=== PATIENT | male | born 1965 | race Hispanic/Latino ===

== ENCOUNTER 2019-01-11 13:59 | Outpatient (CLI) | payer MEDICARE ==
--- NOTE | 2019-01-11 15:35 | ULT ---
RENAL SONOGRAM: HISTORY: Chronic renal disease. FINDINGS: The right kidney is 9.9 cm and the left kidney is 9.8 cm. Each has a normal appearance without evide nce of mass, stone, or hydronephrosis. Urinary bladder is incompletely distended. Pleural fluid is seen bilaterally. IMPRESSION: 1. Normal sonographic appearance of the kidneys. No evidence of obstruction. 2. Bilateral pleural fluid. POS: [facility]
== END 2019-01-11 14:00 | disposition home or self-care (01) ==
LOC: BICULT 13:59
PROVIDERS: ATTEND Internal Medicine Nephrology
DX: N18.4 Chronic kidney disease, stage 4 (severe) (principal); J94.8 Other specified pleural conditions
CPT/HCPCS: 76770

== ENCOUNTER 2019-05-09 09:27 | Outpatient (CLI) | payer MEDICARE, OTHER ==
--- NOTE | 2019-05-09 11:15 | ULT ---
ULTRASOUND VESSEL MAPPING DIALYSIS ACCESS: HISTORY: Dialysis. End-stage renal disease. COMPARISON: Ultrasound vessel mapping of 06/09/2016. FINDINGS: Real-time, pastrana scale, color Doppler, and spectral analysis of bilateral upper extremity venous and a rterial systems performed. RIGHT SIDE: Brachial Artery: 4.6 mm Radial Artery: 1.6 mm Ulnar Artery: 1.4 mm CEPHALIC: Proximal humerus 2.9 mm Mid humerus 1.9 mm Distal 2.7 mm Elbow 4.3 mm Proximal forearm 2.3 mm Mid 1.9 mm Distal 1.6 mm BASILIC: Proximal humerus 4.7 mm Mid humerus 3.2 mm Distal 2.8 mm Elbow 1.3 mm Proximal forearm 0.7 mm Mid 0.7 mm Distal 0.9 mm LEFT SIDE: Brachial Artery: 4.0 mm Radial Artery: 2.0 mm Ulnar Artery: 1.6 mm CEPHALIC: Proximal humerus 2.8 mm Mid humerus 2.6 mm Distal 3.2 mm Elbow 4.1 mm Proximal forearm 2.1 mm Mid 1.9 mm Distal 2.3 mm BASILIC: Proximal humerus 5.1 mm Mid humerus 2.5 mm Distal 2.7 mm Elbow 1.0 mm Proximal forearm 1.3 mm Mid 1.0 mm Distal 1.4 mm The internal jugular veins and subclavian veins are patent. IMPRESSION: Vascular size as above. POS: [facility]
== END 2019-05-09 09:28 | disposition home or self-care (01) ==
LOC: BICULT 09:27
PROVIDERS: ATTEND Internal Medicine Nephrology
DX: N18.5 Chronic kidney disease, stage 5 (principal); R60.9 Edema, unspecified
CPT/HCPCS: 93970; G0365

== ENCOUNTER 2019-11-08 11:08 | Inpatient (IN) | payer MEDICARE, SELFPAY ==
[2019-11-08 11:51] LABS: #Eosinphils 0.1 thou/uL (0.0-0.7); #Lymphocytes 0.6 thou/uL (1.20-3.40); #Monocytes 0.4 thou/uL (0.11-0.59); #Neutrophils 8.8 thou/uL (1.40-6.50); %Eosinophils 0.9 % (0.0-10.0); %Lymphocytes 5.8 % (21.0-51.0); %Monocytes 4.2 % (0.0-10.0); %Neutrophils 89.1 % (42.0-75.0); Hemoglobin 8.4 g/dL (14.0-18.0); Mean Corpuscular HGB CONC 35.2 g/dL (32.0-36.0); Mean Corpuscular Hemoglobin 30.9 pg (27.0-31.0); Mean Corpuscular Volume 87.7 fL (78.0-98.0); Mean Platelet Volume 6.2 fL (7.4-10.4); Platelet Count 240 thou/uL (130-400); RBC Distribution Width 12.3 % (11.5-14.5); Red Blood Cell (RBC) Count 2.72 mill/uL (4.70-6.10); White Blood Cell (WBC) Count 9.8 thou/uL (4.8-10.8)
--- NOTE | 2019-11-08 11:56 | RAD ---
XR Chest 1 View Portable HISTORY: End-stage renal disease, fluid overload COMPARISON: None FINDINGS: The heart is enlarged. There is pulmonary vascular congestion with bilateral pleural effusi ons, right larger than left. No pneumothoraces are seen.
[2019-11-08 12:11] LABS: ALT (SGPT) 8 U/L (8-55); AST (SGOT) 12 U/L (5-34); Albumin 3.3 g/dL (3.5-5.0); Alkaline Phosphatase 70 U/L (40-110); Anion Gap 21 mmol/L (10-20); BUN (Urea Nitrogen) 120 mg/dL (8.4-25.7); Bilirubin, Total 0.5 mg/dL (0.2-1.2); Calc. Creatinine Clearance 0 mL/min (70-130); Calcium 6.2 mg/dL (7.8-10.44); Carbon Dioxide 19 mmol/L (22-29); Chloride 101 mmol/L (98-107); Estimated GFR-MDRD 5; Globulin 3.1 g/dL (2.4-3.5); Glucose 119 mg/dL (70-105); Potassium 3.8 mmol/L (3.5-5.1); Protein, Total 6.4 g/dL (6.0-8.3); Sodium 137 mmol/L (136-145)
[2019-11-08] MEDS ORDERED: Furosemide 40 MG/4 ML VIAL ONE (12:19)
[2019-11-08] MEDS ORDERED: EPOETIN ALFA-EPBX (ESRD) 10,000 UNIT/ML VIAL SC SCH (12:45)
[2019-11-08] MEDS ORDERED: Nitroglycerin 2% Ointment 1 INCH/1 GM Packet ONE (14:38)
[2019-11-08] MEDS ORDERED: Calcium Gluc 4.6 MEQ/10 ML (100 MG/ML) SLOW IVP SCH (15:00)
--- NOTE | 2019-11-08 15:56 | CON ---
DATE OF CONSULTATION: REASON FOR CONSULTATION: CKD stage 5. HISTORY OF PRESENT ILLNESS: This is a very pleasant 54-year-old gentleman presented to the hospital with worsening renal failure and uremia. The patient was noted to have elevated creatinine. The patient denies any chest pain or any new onset of dyspnea. PAST MEDICAL HISTORY: For hypertension, history of anemia, history of CKD stage 5, history of diabetes mellitus, has history of foot surgery. SOCIAL HISTORY: No alcohol or drug use. FAMILY HISTORY: Negative for ESRD. ALLERGIES: REVIEWED. HOME MEDICATIONS: List reviewed. HOSPITAL MEDICATIONS: List reviewed. REVIEW OF SYSTEMS: A 15-point review of system was performed, negative except for positives noted above. GENERAL: HEAD: NECK: No swelling or lumps. NOSE: No epistaxis or discharge. EYES: No diplopia or pain. RESPIRATORY: CARDIOVASCULAR: GASTROINTESTINAL: /HEAD GOLF PROFESSIONAL: MUSCULOSKELETAL: No joint pain. NEUROPSYCHIATIC SYSTEMS: No suicidal ideation. No ideation. SKIN: Denies any rash or ulcer. CONSTITUTIONAL: No fever or chills. PHYSICAL EXAMINATION: CONSTITUTIONAL: The patient is awake and alert. VITAL SIGNS: Reviewed. GENERAL APPEARANCE AND MENTAL STATUS: Fair. HEAD/NECK: Normocephalic. Atraumatic. EYES: EOMI. No deformity. EARS: Clear. No ulcers. NOSE: Intact. No lesions. MOUTH: Clear. No discharge. THROAT: Clear. No exudate. LUNGS: Clear. No crackles. CARDIAC: S1, S2. No rub. ABDOMEN: Benign. Bowel sounds positive. GENITALIA/RECTUM: Ortega absent. BACK/EXTREMITIES: Edema 0+. NEUROLOGICAL: Alert and motor intact. SKIN: LYMPHATICS: LABORATORY DATA: Labs reviewed. ASSESSMENT AND PLAN: Stage 5 chronic kidney disease. We will discuss risk versus benefits of dialysis. Hypertension, stable. Anemia, we will start Epogen and transfuse as needed. Medications based on GFR appropriate. Job ID: [id number]
[2019-11-08] MEDS ORDERED: Furosemide 100 MG/10 ML VIAL SLOW IVP SCH (18:00)
[2019-11-08] MEDS ORDERED: Acetaminophen 500 MG TAB PO PRN (18:40)
[2019-11-08] MEDS ORDERED: Dextrose 5% in Water 1,000 ML IV PRN (18:40)
[2019-11-08] MEDS ORDERED: Dextrose 50% Abboject 50 ML SYRINGE SLOW IVP PRN (18:40)
[2019-11-08] MEDS ORDERED: hydrALAZINE 20 MG/ML VIAL SLOW IVP PRN (18:40)
[2019-11-08] MEDS ORDERED: Ondansetron PF 4 MG/2 ML Vial IVP PRN (18:40)
[2019-11-08] MEDS ORDERED: Ondansetron ODT 4 MG TAB PO PRN (18:40)
[2019-11-08] MEDS: HumaLOG 300 UNITS/3 ML VIAL SC PRN (20:48)
[2019-11-08] MEDS: Famotidine 20 MG TAB PO SCH (20:49)
--- NOTE | 2019-11-08 21:02 | HP ---
PRIMARY CARE PROVIDER: Anisha Hamilton. PRIMARY OVERHAULER BUS TRUCK: Quentin Patricia MD CHIEF COMPLAINT: Swelling. HISTORY OF PRESENT ILLNESS: This is a 54-year-old male with a significant history of end-stage renal disease, awaiting renal transplant and previously refusing hemodialysis, presenting to his primary geriatric social work professor office for followup. The patient was noted with general anasarca and referred to the emergency room for evaluation and IV Lasix. The patient had noticed approximately 3-week history of persistent swelling of his lower extremities, abdomen and face. The patient states he is in the process of pursuing transplant through the Facility in [place], [place]. The patient denied any orthopnea, fever, chills, trauma or injury. The patient denied any travel history or family members with similar symptoms. The patient does admit he continues to urinate without change to the volume. In the emergency room, the patient was noted on chest imaging without pulmonary edema as well as a large bilateral pleural effusions. The patient received IV Lasix 80 mg x1 dose in addition to calcium gluconate, transdermal nitroglycerin, and Epogen. PAST MEDICAL HISTORY: 1. End-stage renal disease, not on dialysis. 2. Diabetes mellitus type 2, diet managed. 3. Glaucoma. PAST SURGICAL HISTORY: Status post transmetatarsal amputation of the right foot. CURRENT MEDICATIONS: 1. Metolazone 5 mg p.o. daily. 2. Lasix 80 mg p.o. b.i.d. ALLERGIES: NO KNOWN DRUG ALLERGIES. FAMILY HISTORY: Mother and father with hypertension. Father with diabetes mellitus and myocardial infarction. SOCIAL HISTORY: Resides in [place], [place] with his mother. Quit alcohol use 10 years prior to this evaluation. Quit tobacco use 10 years prior to this evaluation. No illicit drug use. REVIEW OF SYSTEMS: CONSTITUTIONAL: Negative for weight loss or gain, ability to conduct usual activities. SKIN: Negative for rash, itching. EYES: Negative for double vision, pain. ENT/MOUTH: Negative for nose bleeding, neck stiffness, pain, tenderness. CARDIOVASCULAR: Negative for palpitations, dyspnea on exertion, orthopnea. RESPIRATORY: Negative for shortness of breath, wheezing, cough, hemoptysis, fever or night sweats. GASTROINTESTINAL: Negative for poor appetite, abdominal pain, heartburn, nausea, vomiting, constipation, or diarrhea. GENITOURINARY: Negative for urgency, frequency, dysuria, nocturia. MUSCULOSKELETAL: Negative for pain, swelling. NEUROLOGIC/PSYCHIATRIC: Negative for anxiety, depression. ALLERGY/IMMUNOLOGIC: Negative for skin rash, bleeding tendency. Otherwise negative except as stated per HPI. PHYSICAL EXAMINATION: VITAL SIGNS: On admission, blood pressure 199/104, pulse 93, respiratory rate 16, temperature 99.2 degrees Fahrenheit, O2 saturation 98% on room air. GENERAL APPEARANCE: This is a 54-year-old male, alert and oriented x3, pleasant, responsive, in no acute distress. HEENT: Pupils are equal, round, reactive to light and accommodation. Extraocular muscles are intact. No scleral icterus. No conjunctival injection. Nares patent. OP is clear. Periorbital edema noted. NECK: Supple. No cervical adenopathy. No thyromegaly. No carotid bruits. JVD noted bilaterally. CHEST: Absent breath sounds from the mid hemithorax to the bases bilaterally. Scattered crackles in the mid lung zones bilaterally. CARDIOVASCULAR: S1, S2 without noted murmur, rub, or gallop. ABDOMEN: Distended and firm with positive bowel sounds in all 4 quadrants. Positive fluid wave. EXTREMITIES: Warm and dry with fair turgor. Postsurgical changes noted with transmetatarsal amputation of the right foot consistent with prior surgical history. Pitting edema to the proximal thighs. Pulses are palpable distally at the dorsalis pedis, posterior tibial, and popliteal arteries bilaterally. Capillary refill less than 2 seconds. NEUROLOGIC: Cranial nerves 2 through 12 are grossly intact. No focal or lateralizing signs appreciated. PERTINENT LAB AND X-RAY FINDINGS: Sodium 137, potassium 3.8, chloride 101, CO2 of 19, BUN 120, creatinine 10.07, estimated GFR 5, glucose 119, calcium 6.2, albumin 3.3. BNP 3027. LFTs within normal limits. CBC showed a white blood cell count of 9.8, hemoglobin 8.4, hematocrit 24, platelet count 240 with 89% neutrophils. Portable chest x-ray dated 11/08/2019 showed pulmonary vascular prominence with pulmonary edema and bilateral pleural effusions, right greater than left. ASSESSMENT AND PLAN: 1. End-stage renal disease with volume overload. The patient will be admitted to the medical floor. We will continue Lasix 80 mg IV b.i.d. Monitor urine output and daily weights. The patient considering hemodialysis options as a temporary option pending renal transplant. 2. Pulmonary edema. Secondary to #1. Check 2D transthoracic echocardiogram for accurate ejection fraction. Continue Lasix as outlined previously. 3. Normocytic anemia secondary to chronic kidney disease. Status post Epogen in the emergency room. Serial H and H monitoring. No current evidence of acute blood loss. 4. Hypertensive urgency. Suspect secondary to volume overload. Improved after transdermal nitroglycerin. Continue hydralazine 10 mg IV q.4 hours p.r.n. systolic greater than or equal to 170. 5. Prophylaxis. SCDs while in bed. Pepcid 20 mg p.o. b.i.d.. CODE STATUS: Full. Surrogate medical decision maker is the patient's mother. Job ID: [id number]
[2019-11-09] MEDS: Cepastat Lozenges 1 LOZ PO PRN ×2 (05:32→12:18)
[2019-11-09] MEDS: Furosemide 100 MG/10 ML VIAL SLOW IVP SCH ×2 (05:33→14:49)
[2019-11-09 06:20] LABS: Hemoglobin A1c 5.7 % (4.0-6.0)
[2019-11-09 06:33] LABS: Phosphorus 8.5 mg/dL (2.3-4.7)
[2019-11-09 06:34] LABS: Mean Corpuscular HGB CONC 34.9 g/dL (32.0-36.0); Mean Corpuscular Hemoglobin 30.9 pg (27.0-31.0); Mean Corpuscular Volume 88.6 fL (78.0-98.0); Mean Platelet Volume 6.8 fL (7.4-10.4); Platelet Count 247 thou/uL (130-400); RBC Distribution Width 12.5 % (11.5-14.5); Red Blood Cell (RBC) Count 2.26 mill/uL (4.70-6.10); White Blood Cell (WBC) Count 6.5 thou/uL (4.8-10.8)
[2019-11-09 06:39] LABS: ALT (SGPT) 7 U/L (8-55); AST (SGOT) 9 U/L (5-34); Albumin 2.7 g/dL (3.5-5.0); Alkaline Phosphatase 57 U/L (40-110); Anion Gap 21 mmol/L (10-20); BUN (Urea Nitrogen) 125 mg/dL (8.4-25.7); Bilirubin, Total 0.4 mg/dL (0.2-1.2); Calc. Creatinine Clearance 9 mL/min (70-130); Calcium 6.1 mg/dL (7.8-10.44); Carbon Dioxide 16 mmol/L (22-29); Chloride 103 mmol/L (98-107); Estimated GFR-MDRD 6; Globulin 2.5 g/dL (2.4-3.5); Glucose 89 mg/dL (70-105); Magnesium 2.2 mg/dL (1.6-2.6); Potassium 3.4 mmol/L (3.5-5.1); Protein, Total 5.2 g/dL (6.0-8.3); Sodium 137 mmol/L (136-145)
[2019-11-09 06:47] LABS: Band 4 % (5-11); Eosinophils 1 % (0-10); Lymphocytes 12 % (21-51); MDiff Complete? YES; Monocytes 8 % (0-10); Neutrophil 75 % (42-75)
--- NOTE | 2019-11-09 09:35 | PRG ---
DATE OF SERVICE: 11/09/2019 SUBJECTIVE: The patient is seen and examined at the bedside. He makes good urine, but it was not measured exactly, so we do not know exact output, but he noticed significant improvement on his leg swelling. He overall feels good. He is awaiting for transplant. He is awaiting for transplant. He is on list in [place]. OBJECTIVE: VITAL SIGNS: Blood pressure is 121/79, pulse is 86, respiratory rate is 20, temperature is 98.0, and O2 saturation 93% on room air. HEENT: Head is atraumatic and normocephalic. Conjunctivae are palish. Oral mucosa is moist. NECK: Supple. LUNGS: Bilateral rales and crackles at both bases. HEART: S1 and S2 normal. No S3. No S4. ABDOMEN: Soft and nontender, somewhat swollen. EXTREMITIES: 2+ peripheral edema pitting, similar bilaterally. NEUROLOGIC: He is alert and oriented x4. There are no any motor or sensory deficits. Cranial nerves are intact. LABORATORY DATA: Labs showed a white count of 6.5, hemoglobin 7.0, hematocrit 20.0, platelet count is 247. Sodium of 137, potassium 3.4, chloride 103, CO2 of 16, creatinine 9.76, BUN 125, glucose is ranging from 130 to 234, calcium 6.1, albumin 2.7, and total protein 5.2. IMPRESSION: 1. End-stage renal disease, worsening. The patient is on IV Lasix and we are going to start a strict input and output on him. The patient was seen by continuous linter drier operator and he agrees with the current regimen. 2. Anemia. He is still fluid overloaded with significantly decreased breath sounds at both bases on physical examination, which is evidence that he has some fluid in his both lower lobes of both lungs. I am going to wait before I transfuse him, he received Epogen yesterday from Dr. Patricia. If his hemoglobin and hematocrit are low tomorrow below 7, I will transfuse him with 1 unit of packed red blood cells. 3. Diabetes mellitus. 4. Hypertensive urgency, improved. PLAN: Plan is to continue current regimen with IV Lasix. Continue Accu-Cheks before meals and at bedtime and cover with the sliding scale. We are going to start do strict input and output. Job ID: [id number]
[2019-11-09] MEDS ORDERED: Furosemide 100 MG/10 ML VIAL SLOW IVP SCH (10:00)
--- NOTE | 2019-11-09 10:02 | PRG ---
DATE OF SERVICE: 11/09/2019 SUBJECTIVE: A 54-year-old gentleman, being seen for stage 5 chronic kidney disease. The patient denies any nausea, vomiting, or chest pain. OBJECTIVE: See above. Awake, alert, in no acute distress. VITAL SIGNS: Afebrile, pulse 82, breathing 16, blood pressure 137/78. GENERAL APPEARANCE AND MENTAL STATUS: Fair. HEAD/NECK: Normocephalic. Atraumatic. EYES: EOMI. No deformity. EARS: Clear. No ulcers. NOSE: Intact. No lesions. MOUTH: Clear. No discharge. THROAT: Clear. No exudate. LUNGS: Clear. No crackles. CARDIAC: S1, S2. No rub. ABDOMEN: Benign. Bowel sounds positive. GENITALIA/RECTUM: Ortega absent. BACK/EXTREMITIES: Edema 0+. NEUROLOGICAL: Alert and motor intact. SKIN: LYMPHATICS: LABORATORY DATA: Reviewed. ASSESSMENT AND PLAN: 1. Stage 5 chronic kidney disease with uremia and congestive heart failure, offered dialysis. The patient has declined. 2. Hypertension, stable. 3. Anemia, stable. All risks versus benefits of renal replacement therapy were offered, the patient declined. Job ID: [id number]
[2019-11-09] MEDS: HumaLOG 300 UNITS/3 ML VIAL SC PRN (12:16)
[2019-11-09] MEDS: Famotidine 20 MG TAB PO SCH (20:34)
[2019-11-10] MEDS: Furosemide 100 MG/10 ML VIAL SLOW IVP SCH ×2 (05:24→14:03)
--- NOTE | 2019-11-10 08:27 | PRG ---
DATE OF SERVICE: 11/10/2019 SUBJECTIVE: A 54-year-old gentleman being seen for end-stage kidney disease. The patient denies any nausea, vomiting, or chest pain. OBJECTIVE: CONSTITUTIONAL: The patient is awake, alert. VITAL SIGNS: Afebrile, pulse breathing 16, blood pressure GENERAL APPEARANCE AND MENTAL STATUS: Fair. HEAD/NECK: Normocephalic. Atraumatic. EYES: EOMI. No deformity. EARS: Clear. No ulcers. NOSE: Intact. No lesions. MOUTH: Clear. No discharge. THROAT: Clear. No exudate. LUNGS: Clear. No crackles. CARDIAC: S1, S2. No rub. ABDOMEN: Benign. Bowel sounds positive. GENITALIA/RECTUM: Ortega absent. BACK/EXTREMITIES: Lower extremities showed edema. NEUROLOGICAL: Alert and motor intact. SKIN: LYMPHATICS: LABORATORY DATA: None today. ASSESSMENT AND PLAN: 1. Stage 6 chronic kidney disease. Recommend dialysis. The patient refused. 2. Hypertension, stable. 3. Anemia. We would recommend checking hemoglobin and consider transfusion and Epogen. Job ID: [id number]
[2019-11-10 08:32] LABS: #Basophils 0.1 thou/uL (0.0-0.2); #Eosinphils 0.2 thou/uL (0.0-0.7); #Lymphocytes 0.7 thou/uL (1.20-3.40); #Monocytes 0.6 thou/uL (0.11-0.59); #Neutrophils 7.9 thou/uL (1.40-6.50); %Basophils 0.6 % (0.0-1.0); %Eosinophils 1.8 % (0.0-10.0); %Lymphocytes 7.5 % (21.0-51.0); %Monocytes 6.1 % (0.0-10.0); Hemoglobin 7.8 g/dL (14.0-18.0); Mean Corpuscular HGB CONC 34.5 g/dL (32.0-36.0); Mean Corpuscular Hemoglobin 30.4 pg (27.0-31.0); Mean Corpuscular Volume 88.3 fL (78.0-98.0); Mean Platelet Volume 6.3 fL (7.4-10.4); Platelet Count 260 thou/uL (130-400); RBC Distribution Width 12.8 % (11.5-14.5); Red Blood Cell (RBC) Count 2.58 mill/uL (4.70-6.10); White Blood Cell (WBC) Count 9.4 thou/uL (4.8-10.8)
[2019-11-10 08:49] LABS: Anion Gap 20 mmol/L (10-20); Calc. Creatinine Clearance 9 mL/min (70-130); Calcium 6.4 mg/dL (7.8-10.44); Carbon Dioxide 20 mmol/L (22-29); Chloride 103 mmol/L (98-107); Estimated GFR-MDRD 6; Glucose 126 mg/dL (70-105); Potassium 3.8 mmol/L (3.5-5.1); Sodium 139 mmol/L (136-145)
[2019-11-10 09:01] LABS: BUN (Urea Nitrogen) 121 mg/dL (8.4-25.7)
[2019-11-10] MEDS: HumaLOG 300 UNITS/3 ML VIAL SC PRN ×2 (11:25→21:47)
--- NOTE | 2019-11-10 12:24 | PRG ---
DATE OF SERVICE: 11/10/2019 SUBJECTIVE: The patient is seen and examined at the bedside. He is complaining about some wind noises in both ears when he woke up, no earache. He is able to eat his meals. He is able to ambulate. The swelling in his both lower extremities improved. OBJECTIVE: VITAL SIGNS: Blood pressure is 140/89, pulse is 87, temperature is 98.1, respirations 17, O2 saturation is 95% on room air. HEENT: His head is atraumatic and normocephalic. Eyes are PERRLA. Sclerae are nonicteric. Conjunctivae are palish. Oral mucosa is moist. Both ears were examined with otoscope and there was no any visible problem. Ear drums look normal and there is no wax or any blockage in the external canals. NECK: Supple. LUNGS: Breath sounds diminished at both bases. EXTREMITIES: 2+ peripheral edema similar bilaterally. NEUROLOGIC: He is alert and oriented x4. There is no any motor deficits. LABORATORY DATA: Labs showed white count of 9.4, hemoglobin of 7.8, hematocrit 22.7, platelet count is 260,000. Sodium of 139, potassium 3.8, chloride 103, CO2 of 20, BUN 121, creatinine 9.81, glycemia is ranging from 126 to 234, calcium is 6.4. Echocardiogram showed LVEF estimated at 25% to 30% with moderately enlarged or dilated left atrium with moderate mitral regurgitation, severe tricuspid regurgitation, and overall left ventricular function is severely depressed. There is a small pericardial effusion. IMPRESSION: 1. End-stage renal disease, worsening to the point the patient needs hemodialysis, which is offered by Nephrology team. 2. Severe cardiomyopathy. We will get Cardiology involved. 3. Diabetes mellitus. 4. Hypertensive urgency improved. PLAN: As mentioned above. Continue diuretics. Obtain Cardiology consult and start hemodialysis if the patient agrees. Job ID: [id number]
[2019-11-10 17:25] VITALS: BMI 30.7
--- NOTE | 2019-11-10 20:32 | CON ---
DATE OF CONSULTATION: HISTORY OF PRESENT ILLNESS: Mr. Skaggs is a 54-year-old male, who has end-stage renal disease, but continues to decline dialysis. Apparently he is awaiting a transplant in [place]. He now is admitted with increased shortness of breath as well as significant increased abdominal girth. He denies any PND or orthopnea. He also has been having significant increased peripheral edema. He denies any chest discomfort. He denies any nausea, vomiting. He has been treated with IV Lasix but has not had significant diuresis. PAST MEDICAL HISTORY: End-stage renal disease, not on dialysis, diabetes, glaucoma. PAST SURGICAL HISTORY: Transmetatarsal amputation of the right foot. MEDICATIONS: 1. Metolazone 5 mg daily. 2. Furosemide 80 mg b.i.d. ALLERGIES: NONE. SOCIAL HISTORY: He stopped smoking and drinking 10 years ago. FAMILY HISTORY: Father has had myocardial infarction. REVIEW OF SYSTEMS: A 10-point review of systems is otherwise unremarkable. PHYSICAL EXAMINATION: VITAL SIGNS: Blood pressure 157/67, pulse of 86. HEENT: PERRL. NECK: Supple. CHEST: Reveals decreased breath sounds one usp up the posterior lung prince. CARDIOVASCULAR: S1, S2 normal without any S3, S4, or murmurs. ABDOMEN: Reveals fluid wave. EXTREMITIES: Reveal 2 to 3+ edema. NEUROLOGIC: Grossly intact. SKIN: Warm and dry. LABORATORY DATA: EKG-I do not see an EKG on the chart. Echocardiogram revealed a small pericardial effusion and left pleural effusion. Left ventricular size was mildly increased. There was severe left ventricular dysfunction with ejection fraction of 25% to 30%. Left atrium was moderately dilated. There was moderate mitral regurgitation, mild aortic regurgitation, severe tricuspid regurgitation and mild pulmonic regurgitation. Chest x-ray reveals cardiomegaly with pulmonary vascular congestion, with large bilateral pleural effusions. Hemoglobin 7.8, hematocrit 22.7, white count 9400, platelets 260,000. Sodium 139, potassium 3.8 , chloride 103, carbon dioxide 20, BUN 121, creatinine 9.81. BNP 3026.5. IMPRESSION: 1. Acute on chronic systolic congestive heart failure. 2. End-stage renal disease, continues to refuse dialysis. 3. Diabetes. 4. Probable hypertension. PLAN: The patient will be started on carvedilol 3.125 b.i.d. This patient needs urgent volume removal and the only way that will adequately take place is with dialysis. I discussed with him that he needs to undergo dialysis now that possibly with volume removal, his myocardial function may improve. It was also stressed to him that with his heart status the way it is, I doubt that he would ever receive a kidney transplant with his damaged heart. Job ID: [id number] MARIELENA
[2019-11-10] MEDS: Famotidine 20 MG TAB PO SCH (20:55)
[2019-11-11] MEDS: Furosemide 100 MG/10 ML VIAL SLOW IVP SCH ×2 (06:07→14:07)
[2019-11-11] MEDS: Carvedilol 3.125 MG TAB PO SCH ×2 (08:07→17:21)
[2019-11-11] MEDS: Calcium Carbonate 500 MG ChewTAB PO SCH ×3 (08:07→20:52)
[2019-11-11] MEDS: HumaLOG 300 UNITS/3 ML VIAL SC PRN ×2 (11:46→17:22)
--- NOTE | 2019-11-11 12:24 | PRG ---
DATE OF SERVICE: 11/11/2019 SUBJECTIVE: A 54-year-old gentleman being seen for stage 5 chronic kidney disease. The patient denies any nausea, vomiting, or chest pain. OBJECTIVE: CONSTITUTIONAL: The patient is awake and alert. VITAL SIGNS: Afebrile. Pulse 80, breathing 16, blood pressure 132/63. GENERAL APPEARANCE AND MENTAL STATUS: Fair. HEAD/NECK: Normocephalic. Atraumatic. EYES: EOMI. No deformity. EARS: Clear. No ulcers. NOSE: Intact. No lesions. MOUTH: Clear. No discharge. THROAT: Clear. No exudate. LUNGS: Clear. No crackles. CARDIAC: S1, S2. No rub. ABDOMEN: Benign. Bowel sounds positive. GENITALIA/RECTUM: Ortega absent. BACK/EXTREMITIES: Edema 0+. NEUROLOGICAL: Alert and motor intact. SKIN: LYMPHATICS: LABORATORY DATA: Labs show hemoglobin 7.8. ASSESSMENT: 1. Stage 5 chronic kidney disease. The patient refused dialysis. 2. Hypertension, stable. 3. Anemia, stable. 4. Uremia, refused dialysis. 5. Congestive heart failure. Continue Gogo. Job ID: [id number]
--- NOTE | 2019-11-11 15:25 | PDOC.HOSPP ---
- Subjective Encounter Date: 11/11/19 Encounter Time: 15:20 Subjective: f/u for ESRD on Lasix IV for volume mgmt and acute/chronic systolic CHF medically managed. - Objective Vital Signs & Weight: Vital Signs (12 hours) Temp Pulse Resp BP BP Pulse Ox 11/11/19 11:45 97.6 F 80 16 132/63 97 11/11/19 10:28 77 129/60 11/11/19 08:00 98.4 F 96 16 188/87 H 96 11/11/19 03:26 98.3 F 89 20 127/59 L 94 L Weight Weight 164 lb 8 oz I&O: 11/10/19 11/11/19 11/12/19 06:59 06:59 06:59 Intake Total 1050 Output Total 1200 Balance -150 Result Diagrams: 11/10/19 08:19 11/10/19 08:19 Additional Labs: Accuchecks 11/11/19 11/11/19 11/10/19 10:41 05:58 21:00 POC Glucose 226 H 135 H 269 H 11/10/19 16:07 POC Glucose 144 H Laboratory Tests 11/08/19 11/08/19 11/09/19 11:43 11:43 05:30 Hgb 8.4 L Creatinine 10.07 H 9.76 H Hemoglobin A1c Phosphorus 11/09/19 11/09/19 11/09/19 05:30 05:30 05:30 Hgb 7.0 L Creatinine Hemoglobin A1c 5.7 Phosphorus 8.5 H Radiology Reviewed by me: Yes (Echo - EF 25-30%, mod TR, mod MR, mod LAE) EKG Reviewed by me: Yes (Tele -SR) Hospitalist ROS - Medication Medications: Active Medications Generic Name Dose Route Start Last Admin Trade Name Freq PRN Reason Stop Dose Admin Acetaminophen 1,000 mg 11/08/19 18:40 11/08/19 23:29 Tylenol PO 1,000 mg Q6H PRN Administration Mild Pain (1-3) Calcium Carbonate 1,000 mg 11/11/19 09:00 11/11/19 14:07 Tums PO 1,000 mg TID CARLY Administration Carvedilol 3.125 mg 11/11/19 08:00 11/11/19 08:07 Coreg PO 3.125 mg BID-WM CARLY Administration Famotidine 20 mg 11/08/19 21:00 11/10/19 20:55 Pepcid PO 20 mg 2100 CARLY Administration Furosemide 80 mg 11/09/19 06:00 11/11/19 14:07 Lasix SLOW IVP 80 mg 0600,1400 CARLY Administration Insulin Human Lispro 0 units 11/08/19 18:40 11/11/19 11:46 Humalog SC 2 unit .MILD SLIDING SCALE PRN Administration Mild Correctional Scale Insulin Human Lispro 0 units 11/08/19 18:40 11/10/19 21:47 Humalog SC 2 unit .BEDTIME SLIDING SC PRN Administration Bedtime Correctional Scale Throat Lozenges 1 aayna 11/08/19 23:58 11/09/19 12:18 Cepastat Lozenges PO 1 ayana Q2H PRN Administration Sore Throat - Exam General Appearance: NAD, awake alert Eye: PERRL, anicteric sclera ENT: normocephalic atraumatic, no oropharyngeal lesions Neck: supple, symmetric, no JVD, no thyromegaly Heart: RRR, no gallops, no rubs, normal peripheral pulses Respiratory - other findings: absent sounds in lower hemithorax bilat Gastrointestinal: soft, non-tender, normal bowel sounds, distended Extremities: no cyanosis Extremities - other findings: 3+ edema bilat LE's Skin: normal turgor, no lesions Neurological: cranial nerve grossly intact, no new deficit Musculoskeletal: normal tone, normal strength Psychiatric: normal affect, A&O x 3 Hosp A/P (1) ESRD (end stage renal disease) Code(s): N18.6 - END STAGE RENAL DISEASE Status: Chronic Plan: No response to IV Lasix, needs HD (2) Acute on chronic systolic (congestive) heart failure Code(s): I50.23 - ACUTE ON CHRONIC SYSTOLIC (CONGESTIVE) HEART FAILURE Status : Acute Plan: Poor or minimal response to IV Lasix, Coreg/ASA, high risk (3) Anemia due to chronic kidney disease Code(s): N18.9 - CHRONIC KIDNEY DISEASE, UNSPECIFIED; D63.1 - ANEMIA IN CHRONIC KIDNEY DISEASE Status: Acute Plan: Pepcid 20mg daily, EPO rodent exterminator (4) Secondary hyperparathyroidism of renal origin Code(s): N25.81 - SECONDARY HYPERPARATHYROIDISM OF RENAL ORIGIN Status: Chronic - Plan social service worker, out of bed/ambulate Continue trial IV Lasix Needs HD for optimal fluid removal Continue Coreg 3.125mg BID CM for dispo planning AM lab: BMP
[2019-11-11] MEDS: Famotidine 20 MG TAB PO SCH (20:52)
[2019-11-12 05:32] LABS: Anion Gap 20 mmol/L (10-20); Calc. Creatinine Clearance 9 mL/min (70-130); Carbon Dioxide 21 mmol/L (22-29); Cardiac Risk 2.8 (Less than 4.5); Chloride 103 mmol/L (98-107); Cholesterol 131 mg/dl (< 200 Desired); Estimated GFR-MDRD 6; Glucose 111 mg/dL (70-105); HDL Cholesterol 47 mg/dL (>60 Neg Risk); LDL Cholesterol, Calculated 75 mg/dL; Potassium 3.8 mmol/L (3.5-5.1); Sodium 140 mmol/L (136-145); Triglycerides 44 mg/dL (Less than 150)
[2019-11-12 05:38] LABS: Calcium 5.9 mg/dL (7.8-10.44)
[2019-11-12 05:44] LABS: BUN (Urea Nitrogen) 123 mg/dL (8.4-25.7)
[2019-11-12] MEDS: Furosemide 100 MG/10 ML VIAL SLOW IVP SCH ×2 (05:55→15:00)
[2019-11-12] MEDS ORDERED: Calcium Chloride 1 GM/10 ML Abboject SYRINGE IVP SCH (06:15)
[2019-11-12] MEDS: Carvedilol 3.125 MG TAB PO SCH (08:40)
[2019-11-12] MEDS: Calcium Carbonate 500 MG ChewTAB PO SCH ×2 (08:40→14:59)
--- NOTE | 2019-11-12 08:58 | PRG ---
DATE OF SERVICE: 11/10/2019 SUBJECTIVE: This is a 54-year-old gentleman who is being seen for end-stage renal disease. The patient denies any nausea, vomiting, or chest pain. OBJECTIVE: CONSTITUTIONAL: The patient is awake and alert. VITAL SIGNS: Reviewed. GENERAL APPEARANCE AND MENTAL STATUS: Fair. HEAD/NECK: Normocephalic. Atraumatic. EYES: EOMI. No deformity. EARS: Clear. No ulcers. NOSE: Intact. No lesions. MOUTH: Clear. No discharge. THROAT: Clear. No exudate. LUNGS: Clear. No crackles. CARDIAC: S1, S2. No rub. ABDOMEN: Benign. Bowel sounds positive. GENITALIA/RECTUM: Ortega absent. BACK/EXTREMITIES: Edema 0+. NEUROLOGICAL: Alert and motor intact. SKIN: LYMPHATICS: LABORATORY DATA: Reviewed. ASSESSMENT AND PLAN: 1. Chronic kidney disease stage 5. The patient refuses dialysis. 2. Hypertension, stable. 3. medication based on GFR appropriate. 4. Hypocalcemia. Start the patient on Tums t.i.d. Job ID: [id number]
[2019-11-12] MEDS: HumaLOG 300 UNITS/3 ML VIAL SC PRN ×2 (11:59→18:32)
--- NOTE | 2019-11-12 12:05 | PRG ---
DATE OF SERVICE: 11/12/2019 SUBJECTIVE: Patient was seen and examined at bedside and overnight events noted. Patient denies any shortness of breath or chest pain or palpitation. No history of nausea or vomiting or diarrhea or fever or chills or cramps. OBJECTIVE: GENERAL: This is a well-built male, in no apparent distress. VITAL SIGNS: Temperature 98.7. Heart rate 85. Respiratory rate 16. Blood pressure 128/60. HEENT: Atraumatic, normocephalic. Oral mucosa is moist NECK: Supple. CARDIOVASCULAR: S1, S2 heard. Rate and rhythm regular. RESPIRATORY: Clear to auscultation. GASTROINTESTINAL: Abdomen is soft. MUSCULOSKELETAL: No tenderness. No edema. DERMATOLOGIC: No skin rash. NEUROLOGIC: Alert and awake and oriented X3. No focal neurologic deficits. Moving all the extremities. PSYCHIATRIC: Mood and affect normal. LABORATORY DATA: Potassium is 3.8, BUN is 123, creatinine is 9.5. ASSESSMENT AND PLAN: 1. End-stage renal disease. The patient is recommended to have dialysis, but he is refusing dialysis and wants to go home, maybe come back after [place]. 2. Hypertension, controlled. 3. Edema, not getting better with Lasix. 4. Anemia of chronic disease. 5. Hypocalcemia. 6. Vitamin D deficiency. The patient was advised to stay in the hospital and get started on dialysis, but he refused and he wants to go home and not ready to get started on dialysis. The patient was advised to report back to ER if symptoms worsen including shortness of breath, chest pain, palpitation, nausea, vomiting, or diarrhea. Job ID: [id number]
--- NOTE | 2019-11-12 13:09 | PDOC.EVN ---
Event Note - Event Note Event Note: Cardiomyopathy with LifeVest application. No HENNA-i/ARB's due to ESRD.
[2019-11-12] MEDS ORDERED: Carvedilol 3.125 MG TAB PO SCH (15:00)
[2019-11-12 15:38] VITALS: BP 129/60; TEMP 98.1
--- NOTE | 2019-11-13 02:33 | DIS ---
DATE OF ADMISSION: 11/08/2019 DATE OF DISCHARGE: 11/12/2019 DISCHARGE DIAGNOSES: 1. End-stage renal disease with volume overload. 2. Acute on chronic systolic congestive heart failure with ejection fraction of 25% to 30%. 3. Cardiomyopathy with ejection fraction of 25% to 30%. 4. Anemia due to chronic kidney disease. 5. Secondary hyperparathyroidism of renal origin. CONSULTATIONS: 1. Dr. Patricia and Dr. Brantley with Nephrology Service. 2. Dr. Robbin Irwin with Cardiology Service. PERTINENT LABORATORY AND X-RAY FINDINGS: Potassium ranged between 3.4 to 3.8, hemoglobin A1c 5.7, calcium ranged between 5.9 to 6.4, magnesium is 2.2, phosphorus 8.5. Total cholesterol 131, triglycerides 44, HDL 47, LDL 75. BNP 3027. CBC showed a hemoglobin ranged between 7.0 to 8.4. Portable chest x-ray dated 11/08/2019 showed pulmonary vascular congestion and bilateral pleural effusions, right greater than left. 2D transthoracic echocardiogram dated 11/09/2019, showed ejection fraction of 25% to 30%. Moderate left atrial enlargement. Moderate mitral regurgitation. Severe tricuspid regurgitation. HOSPITAL COURSE: The patient was initially admitted after presenting with increased swelling in the context of end-stage renal disease. Awaiting renal transplant. Initially, the patient had refused hemodialysis and was given IV Lasix in an attempt to diurese and decrease overall edema. The patient was unsuccessful in diuresing due to the end-stage renal disease and received general supportive management through the hospital course. The patient was evaluated by the Nephrology Service with recommendations to initiate hemodialysis. However, the patient is wishing to pursue hemodialysis at a later date. The patient underwent evaluation by the Cardiology Service including 2D transthoracic echocardiogram showing overall depressed ejection fraction of 25% to 30%. Likely multifactorial process including end-stage renal disease and poorly controlled hypertension. Current recommendations are for a LifeVest application and initiation of Coreg 3.125 mg b.i.d. Overall, the patient remained clinically stable during the hospital course, tolerating regular oral intake. I have examined the patient at the time of discharge and discussed followup instructions. The patient verbalized understanding and agreement and will discharge home on 11/12/2019. DISCHARGE MEDICATIONS: Coreg 3.125 mg p.o. b.i.d. FOLLOWUP: The patient will follow up with Dr. Js Jesse after discharge. The patient instructed to return to the emergency department at [facility] on 11/16/2019, for initiation of hemodialysis. CONDITION ON DISCHARGE: Fair. ACTIVITY: Ad-haley. DIET: Heart healthy and renal. CODE STATUS: Full. DISPOSITION: Discharged home, 11/12/2019. TIME SPENT: Total time preparing and coordinating discharge is 34 minutes. Job ID: [id number]
== END 2019-11-12 19:10 | disposition home or self-care (01) | DRG 291 ==
LOC: ERS 11:08 → T4-A 15:18 → 2NO 11-10 17:01
PROVIDERS: ADMIT Family Medicine; ATTEND Family Medicine
DX: I13.2 Hypertensive heart and chronic kidney disease with heart failure and with stage 5 chronic kidney disease, or end stage renal disease (principal); N18.6 End stage renal disease; I50.23 Acute on chronic systolic (congestive) heart failure; N25.81 Secondary hyperparathyroidism of renal origin; E11.22 Type 2 diabetes mellitus with diabetic chronic kidney disease; Z87.891 Personal history of nicotine dependence; D63.1 Anemia in chronic kidney disease; I42.9 Cardiomyopathy, unspecified; I16.0 Hypertensive urgency; E83.51 Hypocalcemia; E55.9 Vitamin D deficiency, unspecified
CPT/HCPCS: 36415; 36416; 71045; 80048; 80053; 80061; 82306; 83036; 83735; 83880; 84100; 85007; 85025; 85027; 93005; 93010; 93306; 96372; 96374; J1940; Q5105

== ENCOUNTER 2019-11-16 06:25 | Inpatient (IN) | payer MEDICARE, SELFPAY ==
[2019-11-16 07:46] LABS: INR-International Normal Ratio 1.2; PTT 35.1 SEC (22.9-36.1); Prothrombin Time 14.8 SEC (12.0-14.7)
[2019-11-16 07:51] LABS: #Eosinphils 0.1 thou/uL (0.0-0.7); #Lymphocytes 0.7 thou/uL (1.20-3.40); #Monocytes 0.5 thou/uL (0.11-0.59); #Neutrophils 4.7 thou/uL (1.40-6.50); %Eosinophils 1.9 % (0.0-10.0); %Lymphocytes 11.8 % (21.0-51.0); %Monocytes 8.1 % (0.0-10.0); %Neutrophils 78.1 % (42.0-75.0); Hemoglobin 7.9 g/dL (14.0-18.0); Mean Corpuscular HGB CONC 34.6 g/dL (32.0-36.0); Mean Corpuscular Hemoglobin 31.3 pg (27.0-31.0); Mean Corpuscular Volume 90.5 fL (78.0-98.0); Mean Platelet Volume 6.5 fL (7.4-10.4); Platelet Count 259 thou/uL (130-400); Platelet Morphology Comment Appears Adequate; RBC Distribution Width 13.7 % (11.5-14.5); Red Blood Cell (RBC) Count 2.54 mill/uL (4.70-6.10); White Blood Cell (WBC) Count 6.1 thou/uL (4.8-10.8)
[2019-11-16 07:52] LABS: ALT (SGPT) 11 U/L (8-55); AST (SGOT) 11 U/L (5-34); Albumin 3.3 g/dL (3.5-5.0); Alkaline Phosphatase 62 U/L (40-110); Anion Gap 21 mmol/L (10-20); Bilirubin, Total 0.6 mg/dL (0.2-1.2); CK (CPK) 503 U/L (30-200); Calc. Creatinine Clearance 0 mL/min (70-130); Carbon Dioxide 20 mmol/L (22-29); Chloride 101 mmol/L (98-107); Estimated GFR-MDRD 5; Globulin 2.9 g/dL (2.4-3.5); Glucose 121 mg/dL (70-105); Lipase 46 U/L (8-78); Potassium 4.3 mmol/L (3.5-5.1); Protein, Total 6.2 g/dL (6.0-8.3); Sodium 138 mmol/L (136-145)
[2019-11-16 08:04] LABS: BUN (Urea Nitrogen) 134 mg/dL (8.4-25.7); Calcium 5.8 mg/dL (7.8-10.44)
[2019-11-16 08:18] LABS: CKMB 11.8 ng/mL (0-6.6)
[2019-11-16] MEDS ORDERED: Aspirin Chewable 81 MG TAB ONE (09:06)
[2019-11-16 09:24] LABS: Bilirubin Negative (Negative); Blood, Urine 2+ (Negative); Clarity Clear (Clear); Glucose, Urine (Dipstick) 100 mg/dL (Negative); Leukocyte Negative Leu/uL (Negative); Nitrite Negative (Negative); Protein, Urine (Dipstick) 300 mg/dL (Neg-Trace); RBC/HPF 0-3 HPF (0-3); Squamous Epithelial None Seen HPF (0-3); Urobilinogen Normal mg/dL (Less than 2)
--- NOTE | 2019-11-16 09:28 | RAD ---
CHEST 1 VIEW: INDICATION: History of dyspnea. COMPARISON: Prior exam dated 11/08/2019. FINDINGS: Cardiomegaly, pulmonary vascular congestion, perihilar edema, and bilateral pleural effusions persist . Bibasilar airspace opacities are similar-appearing. No pneumothorax is evident. IMPRESSION: Stable examination. There are findings suggesting fluid overload. POS: TPC
[2019-11-16 09:32] LABS: Bacteria/HPF None Seen HPF (None Seen); Renal Epithelial 0-3 HPF (None Seen); Transitional Epithelial 0-3 HPF (None Seen)
--- NOTE | 2019-11-16 09:47 | PDOC.HHP ---
Hospitalist HPI - History of Present Illness Fluid overload; Swelling History of Present Illness: 54 yo male with DM-2 and CKD-5 being evaluated for renal transplant in [place] who is not on dialysis presented to ED due to fluid overload. Patient was recently at this facility last week due to fluid overload. He was diagnosed with new onset systolic CHF and dialysis was offered. However, he refused the same at that time. He was given IV diuretics and discharged home. Today, patient states that over the past 2 weeks, he has noticed significant swelling in his legs and abdominal swelling. He denies orthopnea or PND. Denies chest pain, palpitations, lightheadedness. He reports some nausea and dry cough. No sputum, vomiting, diarrhea, constipation. No burning or pain with urination. Reports swelling in his arms and rash in his arms due to the swelling. No fever, chills. No recent travel history. No history of sick contacts. Lives with his mother. He is currently disabled. Does not use any assistive devices for ambulation. Denies shortness of breath, headache, vision changes, difficulty swallowing. In the ER, nephrology was contacted and dialysis orders were placed. Patient will receive a dialysis cath placement by ER physician Dr. Dwayne guzman. Hospitalist ROS - Review of Systems All other systems reviewed; all pertinent +/- noted in HPI/Subj Hospitalist History - Past Medical History Source: patient Cardiac: reports: CHF, HTN Renal/: reports: Chronic renal insuff Endocrine: reports: Diabetes - Past Surgical History Other Surgical History: Right TMA - Family History Family History: reports: cardiac disorder (father), diabetes mellitus (father), hypertension (father and mother) - Social History Smoking Status: Former smoker Tobacco Type: cigarettes Alcohol: reports: None Drugs: reports: none Living Situation: With Family Activity level: independent ambulation - Exam General Appearance: NAD, awake alert Eye: PERRL, anicteric sclera Eye - other findings: subconjunctival hemorrhage in left eye ENT: normocephalic atraumatic, no oropharyngeal lesions, moist mucosa Neck: supple, symmetric, no thyromegaly, no lymphadenopathy Heart: RRR, no gallops, no rubs, normal peripheral pulses Heart - other findings: 3+ bilateral pitting pedal edema; abdominal wall edema; B/L UE edema Respiratory: no wheezes, rales (bilateral lower lobes) Respiratory - other findings: absent breath sounds bilateral lower lobes; reduced air entry Gastrointestinal: soft, non-tender, non-distended, normal bowel sounds, no palpable masses Gastrointestinal - other findings: abdominal wall edema Extremities: no cyanosis, no clubbing Skin: normal turgor, no lesions Neurological: cranial nerve grossly intact, no weakness, no focal deficits Musculoskeletal: normal tone, normal strength, no muscle wasting Musculoskeletal - other findings: s/p right TMA Psychiatric: normal affect, normal behavior, A&O x 3 Hospitalist Results - Labs Result Diagrams: 11/16/19 07:18 11/16/19 07:18 Lab results: WBC 6.1 thou/uL (4.8-10.8) 11/16/19 07:18 Hgb 7.9 g/dL (14.0-18.0) L 11/16/19 07:18 Hct 23.0 % (42.0-52.0) L 11/16/19 07:18 MCV 90.5 fL (78.0-98.0) 11/16/19 07:18 Plt Count 259 thou/uL (130-400) 11/16/19 07:18 Neutrophils % 78.1 % (42.0-75.0) H 11/16/19 07:18 Sodium 138 mmol/L (136-145) 11/16/19 07:18 Potassium 4.3 mmol/L (3.5-5.1) 11/16/19 07:18 Chloride 101 mmol/L (98-107) 11/16/19 07:18 Carbon Dioxide 20 mmol/L (22-29) L 11/16/19 07:18 BUN 134 mg/dL (8.4-25.7) H 11/16/19 07:18 Creatinine 10.35 mg/dL (0.7-1.3) H 11/16/19 07:18 Glucose 121 mg/dL (70-105) H 11/16/19 07:18 Calcium 5.8 mg/dL (7.8-10.44) L* 11/16/19 07:18 Total Bilirubin 0.6 mg/dL (0.2-1.2) 11/16/19 07:18 AST 11 U/L (5-34) 11/16/19 07:18 ALT 11 U/L (8-55) 11/16/19 07:18 Alkaline Phosphatase 62 U/L (40-110) 11/16/19 07:18 Creatine Kinase 503 U/L (30-200) H 11/16/19 07:18 CK-MB (CK-2) 11.8 ng/mL (0-6.6) H* 11/16/19 07:18 Troponin I 0.119 ng/mL (< 0.028) H 11/16/19 07:18 B-Natriuretic Peptide 3338.9 pg/mL (0-100) H 11/16/19 07:18 Serum Total Protein 6.2 g/dL (6.0-8.3) 11/16/19 07:18 Albumin 3.3 g/dL (3.5-5.0) L 11/16/19 07:18 Lipase 46 U/L (8-78) 11/16/19 07:18 Urine Ketones Negative mg/dL (Negative) 11/16/19 08:55 Urine Blood 2+ (Negative) A 11/16/19 08:55 Urine Nitrite Negative (Negative) 11/16/19 08:55 Ur Leukocyte Esterase Negative Sean/uL (Negative) 11/16/19 08:55 Urine RBC 0-3 HPF (0-3) 11/16/19 08:55 Urine WBC 7-10 HPF (0-3) A 11/16/19 08:55 Ur Squamous Epith Cells None Seen HPF (0-3) 11/16/19 08:55 Urine Bacteria None Seen HPF (None Seen) 11/16/19 08:55 - Radiology Interpretation Chest x-ray Status: image reviewed by me (Bilateral CP angle blunting and interstitial edema ) Other Status: report reviewed by me (ECHO 25-30% EF; Moderate MR; Severe TR) Hospitalist H&P A/P - Problem (1) CHF (congestive heart failure) Code(s): I50.9 - HEART FAILURE, UNSPECIFIED Status: Chronic Qualifiers: Heart failure type: systolic Heart failure chronicity: acute on chronic Qualified Code(s): I50.23 - Acute on chronic systolic (congestive) heart failure Assessment and Plan: ECHO earlier this month with EF of 25-30% Unknown etiology Patient denies having ever had a heart attack, stress test or C Patient has profound fluid overload due to his CKD 5 and is not responding to diuretics He needs emergent dialysis for his volume overload Nephrology consulted by ER and he is going to get emergent dialysis today High risk due to need for emergent dialysis for volume overload and risk of resp. failure Admit to inpatient status Expected to stay at least 2 midnights Cardiology consulted - May need stress test vs LHC for ischemia work up On life vest now. Continue the same. Continue coreg No ACEI/ARB due to his CKD-5 May need eventual hydralazine+nitrite therapy. Will defer to cardiology. (2) Elevated troponin Code(s): R79.89 - OTHER SPECIFIED ABNORMAL FINDINGS OF BLOOD CHEMISTRY Status : Acute Assessment and Plan: Could be related to fluid overload/Type 2 [place] Cardiology consulted Now that patient will go on dialysis, may benefit from LHC for ischemia eval Cycle enzymes Start ASA, statin Continue BB therapy (3) DM type 2 (diabetes mellitus, type 2) Status: Chronic Qualifiers: Diabetes mellitus intermediate project manager insulin use: without intermediate project manager use Diabetes mellitus complication status: with kidney complications Diabetes mellitus complication detail: with chronic kidney disease Chronic kidney disease stage : stage 5, not on chronic dialysis Qualified Code(s): E11.22 - Type 2 diabetes mellitus with diabetic chronic kidney disease; N18.5 - Chronic kidney disease, stage 5 Assessment and Plan: HA1C 5.7 2 weeks ago Diabetic, renal diet and SSI Complicated by CKD-5 Now needs dialysis Nephrology consulted. Further dialysis mgmt. per renal Begin Phoslo given recent elevated phosphorous level Vit. D supplements (4) HTN (hypertension) Code(s): I10 - ESSENTIAL (PRIMARY) HYPERTENSION Status: Chronic Qualifiers: Hypertension type: essential hypertension Qualified Code(s): I10 - Essential (primary) hypertension Assessment and Plan: Elevated BP related to volume overload To get dialysis today Continue coreg Monitor BP and adjust meds accordingly (5) Anemia Code(s): D64.9 - ANEMIA, UNSPECIFIED Status: Chronic Qualifiers: Anemia type: iron deficiency Iron deficiency anemia type: other iron deficiency Qualified Code(s): D50.8 - Other iron deficiency anemias Assessment and Plan: Has iron deficiency and anemia of chronic disease given recent increase in ferretin PO iron supplements May need EPO shots. Defer to renal. - Plan Plan: CODE STATUS - FULL CODE
[2019-11-16] MEDS ORDERED: Dextrose 50% Abboject 50 ML SYRINGE SLOW IVP PRN (10:19)
[2019-11-16] MEDS ORDERED: Dextrose 5% in Water 1,000 ML IV PRN (10:19)
[2019-11-16] MEDS ORDERED: Heparin 10,000 UNITS/1 ML VIAL ONE (11:44)
[2019-11-16 11:57] LABS: HBSAg Index 0.25 S/CO (0-0.99); Hep B Core Total Ab Non-Reactive (NonReactive); Hep B Core Total Index 0.13 S/CO (0-0.79); Hep B Surf AB Non-Reactive (NonReactive); Hep B Surf Ag Non-Reactive S/CO (NonReactive); Hep C IgG Ab Non-Reactive (NonReactive); Hep C Index 0.06 S/CO (0-0.79)
[2019-11-16] MEDS ORDERED: Calcium Acetate 667 MG CAP PO SCH (12:00)
[2019-11-16] MEDS ORDERED: Furosemide 40 MG/4 ML VIAL ONE (12:23)
[2019-11-16] MEDS ORDERED: Tuberculin PPD 0.1 ML VIAL I-DERMAL SCH (12:45)
--- NOTE | 2019-11-16 13:31 | CON ---
DATE OF CONSULTATION: 11/16/2019 CONSULTING PHYSICIAN: Dr. Rice from ER and Dr. Calabrese from hospitalist. REASON FOR CONSULTATION: Worsening renal labs. REASON FOR ADMISSION: Swelling. HISTORY OF PRESENT ILLNESS: This is a 54-year-old male with history of CKD, hypertension, CHF, and diabetes, came to the hospital with worsening swelling. He was recently discharged from the hospital and was advised to start on dialysis, but he wants to wait for the holidays. Today, he showed up in the ER to get started on dialysis and he has had a dialysis catheter placement by Dr. Rice in the ER. No fever or chills. No nausea or vomiting. His swelling is getting worse and mild shortness of breath. PAST MEDICAL HISTORY: Positive for, 1. CHF. 2. Hypertension. 3. CKD, stage 5. 4. Type 2 diabetes. 5. Diabetic nephropathy. PAST SURGICAL HISTORY: Right TMA. HOME MEDICATIONS: Reviewed. ALLERGIES: NO KNOWN DRUG ALLERGIES. SOCIAL HISTORY: No smoking, alcohol, or illicit drugs abuse. FAMILY HISTORY: No history of kidney disease. REVIEW OF SYSTEMS: CONSTITUTIONAL: Negative for weight loss or gain, ability to conduct usual activities. SKIN: Negative for rash, itching. EYES: Negative for double vision, pain. ENT/MOUTH: Negative for nose bleeding, neck stiffness, pain, tenderness. CARDIOVASCULAR: Negative for palpitations, dyspnea on exertion, orthopnea. RESPIRATORY: Negative for shortness of breath, wheezing, cough, hemoptysis, fever or night sweats. GASTROINTESTINAL: Negative for poor appetite, abdominal pain, heartburn, nausea, vomiting, constipation, or diarrhea. GENITOURINARY: Negative for urgency, frequency, dysuria, nocturia. MUSCULOSKELETAL: Negative for pain, swelling. NEUROLOGIC/PSYCHIATRIC: Negative for anxiety, depression. ALLERGY/IMMUNOLOGIC: Negative for skin rash, bleeding tendency. PHYSICAL EXAMINATION: GENERAL: Reveals a well-built male, in no apparent distress. VITAL SIGNS: Temperature 98.6, pulse 78, respiratory rate 18, and blood pressure 174/84. HEENT: Atraumatic, normocephalic. Oral mucosa moist. NECK: Supple. CARDIOVASCULAR: S1 and S2. Rate and rhythm regular. RESPIRATORY: Clear. GASTROINTESTINAL: Abdomen is soft. MUSCULOSKELETAL: 2+ edema. DERMATOLOGIC: No skin rash. NEUROLOGIC: Alert and awake. PSYCHIATRIC: Mood and affect are normal. LABORATORY DATA: Hemoglobin is 7.9. Potassium 4.3, BUN is 134, creatinine is 10.3, and calcium 5.8. Urine protein 3+. ASSESSMENT AND PLAN: 1. End-stage renal disease. Plan to start on dialysis. Appreciate help from Dr. Rice for catheter placement and dialysis nurse notified, we will also check labs for dialysis as an outpatient follow with Case Management. 2. Hypocalcemia, not able to have high calcium bath. We will add calcium. 3. Hypoalbuminemia. 4. Edema. 5. Hypertension. 6. Anemia. We will add Epogen. Check iron studies. We will start on dialysis. Case Management consult and we will have a followup. Plan to have 2 hours of dialysis today, then 2 to 3 hours tomorrow, and then go from there. Thank you for the consult. Job ID: [id number]
[2019-11-16 15:25] LABS: Troponin I 0.117 ng/mL (< 0.028)
[2019-11-16] MEDS ORDERED: Ondansetron PF 4 MG/2 ML Vial IVP PRN (17:44)
[2019-11-16] MEDS ORDERED: Senokot S 8.6-50 MG TAB PO PRN (17:44)
[2019-11-16] MEDS ORDERED: Acetaminophen 325 MG TAB PO PRN (17:44)
[2019-11-16] MEDS: Calcium Carbonate + Vit D 1 TAB PO SCH ×2 (18:41→20:28)
[2019-11-16] MEDS: Ferrous Sulfate 325 MG TAB PO SCH (18:41)
[2019-11-16] MEDS: EPOETIN ALFA-EPBX (ESRD) 10,000 UNIT/ML VIAL SC SCH (18:41)
[2019-11-16] MEDS: Carvedilol 3.125 MG TAB PO SCH (18:41)
[2019-11-16 19:04] VITALS: BMI 30.7
[2019-11-16 19:41] LABS: Troponin I 0.141 ng/mL (< 0.028)
[2019-11-16] MEDS: Atorvastatin Calcium 40 MG TAB PO SCH (20:28)
[2019-11-16] MEDS: Heparin 5,000 UNITS/ML VIAL SC SCH (20:28)
[2019-11-17 05:26] LABS: #Eosinphils 0.1 thou/uL (0.0-0.7); #Lymphocytes 0.7 thou/uL (1.20-3.40); #Monocytes 0.4 thou/uL (0.11-0.59); #Neutrophils 3.9 thou/uL (1.40-6.50); %Basophils 0.6 % (0.0-1.0); %Eosinophils 1.9 % (0.0-10.0); %Lymphocytes 13.7 % (21.0-51.0); %Monocytes 7.3 % (0.0-10.0); %Neutrophils 76.6 % (42.0-75.0); Hemoglobin 7.3 g/dL (14.0-18.0); Mean Corpuscular HGB CONC 35.3 g/dL (32.0-36.0); Mean Corpuscular Hemoglobin 31.6 pg (27.0-31.0); Mean Corpuscular Volume 89.5 fL (78.0-98.0); Mean Platelet Volume 6.8 fL (7.4-10.4); Platelet Count 217 thou/uL (130-400); RBC Distribution Width 13.9 % (11.5-14.5); Red Blood Cell (RBC) Count 2.31 mill/uL (4.70-6.10)
[2019-11-17 05:42] LABS: ALT (SGPT) Less than 7 U/L (8-55); AST (SGOT) 10 U/L (5-34); Albumin 3.1 g/dL (3.5-5.0); Alkaline Phosphatase 56 U/L (40-110); Anion Gap 19 mmol/L (10-20); BUN (Urea Nitrogen) 125 mg/dL (8.4-25.7); Bilirubin, Total 0.5 mg/dL (0.2-1.2); Calc. Creatinine Clearance 9 mL/min (70-130); Calcium 6.2 mg/dL (7.8-10.44); Carbon Dioxide 22 mmol/L (22-29); Chloride 105 mmol/L (98-107); Estimated GFR-MDRD 6; Globulin 2.8 g/dL (2.4-3.5); Glucose 115 mg/dL (70-105); Iron 26 ug/dL (65-175); Iron Binding Capacity, Total 171 mcg/dL (261-462); Potassium 4.1 mmol/L (3.5-5.1); Protein, Total 5.9 g/dL (6.0-8.3); Sodium 142 mmol/L (136-145)
[2019-11-17] MEDS: Heparin 5,000 UNITS/ML VIAL SC SCH ×2 (08:33→20:20)
[2019-11-17] MEDS ORDERED: FLU VACC QS2019-20(6MOS UP)/PF 60 MCG/0.5 ML SYRINGE IM ONE (09:00)
[2019-11-17] MEDS ORDERED: Prevnar 13-Val Conj/PF 0.5 ML SYRINGE IM ONE (09:00)
--- NOTE | 2019-11-17 09:39 | PDOC.HOSPP ---
- Subjective Encounter Date: 11/17/19 Encounter Time: 09:45 Subjective: Patient reports that the swelling in his abdomen in better. He continues to report swelling in his legs. No SOB, CP or dizziness. No nausea, vomiting, diarrhea or constipation. No fever, chills. No headaches. - Objective Vital Signs & Weight: Vital Signs (12 hours) Temp Pulse Resp BP Pulse Ox 11/17/19 08:29 98.2 F 83 16 121/56 L 96 11/17/19 03:00 97.9 F 74 20 166/78 H 95 11/16/19 23:22 97.6 F 70 18 154/77 H 96 Weight Weight 164 lb 11.2 oz I&O: 11/16/19 11/17/19 11/18/19 06:59 06:59 06:59 Intake Total 200 Output Total 125 Balance 75 Result Diagrams: 11/17/19 04:50 11/17/19 04:50 Additional Labs: Accuchecks 11/17/19 11/16/19 05:37 20:36 POC Glucose 128 H 220 H Hospitalist ROS - Medication Medications: Active Medications Generic Name Dose Route Start Last Admin Trade Name Ericq PRN Reason Stop Dose Admin Atorvastatin Calcium 80 mg 11/16/19 21:00 11/16/19 20:28 Lipitor PO 80 mg HS CARLY Administration Calcium/Vitamin D 1 tab 11/16/19 15:00 11/16/19 20:28 Caltrate 600 + Vit D PO 1 tab TID CARLY Administration Carvedilol 3.125 mg 11/16/19 17:00 11/16/19 18:41 Coreg PO 3.125 mg BID-WM CARLY Administration Epoetin Rusty-epbx 10,000 unit 11/16/19 15:00 11/16/19 18:41 Retacrit SC 10,000 unit Q7D CARYL Administration Ferrous Sulfate 325 mg 11/16/19 17:00 11/16/19 18:41 Feosol PO 325 mg BID-WM CARLY Administration Heparin Sodium (Porcine) 5,000 units 11/16/19 21:00 11/17/19 08:33 Heparin SC Not Given TID CARLY Tuberculin PPD 0.1 ml 11/16/19 12:45 11/17/19 05:42 Tuberculin Ppd I-DERMAL 11/19/19 12:46 0.1 ml ONE CARLY Administration - Exam General Appearance: NAD, awake alert Eye: PERRL, anicteric sclera ENT: normocephalic atraumatic, no oropharyngeal lesions, moist mucosa Neck: supple, symmetric, no JVD, no thyromegaly, no lymphadenopathy Heart: RRR, no murmur, no gallops, no rubs, normal peripheral pulses Heart - other findings: 3+ bilateral pitting pedal edema Respiratory: no wheezes, normal chest expansion Respiratory - other findings: reduced air entry bilateral lower lobes Gastrointestinal: soft, non-tender, non-distended, normal bowel sounds, no palpable masses Extremities: no cyanosis, no clubbing Hosp A/P (1) CHF (congestive heart failure) Code(s): I50.9 - HEART FAILURE, UNSPECIFIED Status: Chronic Qualifiers: Heart failure type: systolic Heart failure chronicity: acute on chronic Qualified Code(s): I50.23 - Acute on chronic systolic (congestive) heart failure (2) Elevated troponin Code(s): R79.89 - OTHER SPECIFIED ABNORMAL FINDINGS OF BLOOD CHEMISTRY Status : Acute (3) DM type 2 (diabetes mellitus, type 2) Status: Chronic Qualifiers: Diabetes mellitus extermination supervisor insulin use: without extermination supervisor use Diabetes mellitus complication status: with kidney complications Diabetes mellitus complication detail: with chronic kidney disease Chronic kidney disease stage : stage 5, not on chronic dialysis Qualified Code(s): E11.22 - Type 2 diabetes mellitus with diabetic chronic kidney disease; N18.5 - Chronic kidney disease, stage 5 (4) HTN (hypertension) Code(s): I10 - ESSENTIAL (PRIMARY) HYPERTENSION Status: Chronic Qualifiers: Hypertension type: essential hypertension Qualified Code(s): I10 - Essential (primary) hypertension (5) Anemia Code(s): D64.9 - ANEMIA, UNSPECIFIED Status: Chronic Qualifiers: Anemia type: iron deficiency Iron deficiency anemia type: other iron deficiency Qualified Code(s): D50.8 - Other iron deficiency anemias (6) Vitamin D insufficiency Code(s): E55.9 - VITAMIN D DEFICIENCY, UNSPECIFIED Status: Chronic (7) Secondary hyperparathyroidism of renal origin Code(s): N25.81 - SECONDARY HYPERPARATHYROIDISM OF RENAL ORIGIN Status: Chronic - Plan out of bed/ambulate, DVT proph w/heparin Hospitalist H&P A/P - Problem (1) CHF (congestive heart failure) Code(s): I50.9 - HEART FAILURE, UNSPECIFIED Status: Chronic Qualifiers: Heart failure type: systolic Heart failure chronicity: acute on chronic Qualified Code(s): I50.23 - Acute on chronic systolic (congestive) heart failure Assessment and Plan: ECHO earlier this month with EF of 25-30% Unknown etiology Patient denies having ever had a heart attack, stress test or LHC Undergoing 2nd day of dialysis today with ultrafiltration Appreciate input and assistance Improving fluid overload Cardiology consulted - May need stress test vs LHC for ischemia work up Will await further cardiology recommendations On life vest now. Continue coreg Eventual ACEI/ARB vs hydralazine+nitrite therapy. Will defer to cardiology. High risk due to need for emergent dialysis and risk of lethal arrhythmias (2) Elevated troponin Code(s): R79.89 - OTHER SPECIFIED ABNORMAL FINDINGS OF BLOOD CHEMISTRY Status : Acute Assessment and Plan: Could be related to fluid overload/Type 2 [place] Cardiology consulted Now that patient will go on dialysis, may benefit from LHC for ischemia eval. Defer to cardiology Troponins are flat Continue ASA, statin & BB therapy (3) DM type 2 (diabetes mellitus, type 2) Status: Chronic Qualifiers: Diabetes mellitus jail insulin use: without extermination supervisor use Diabetes mellitus complication status: with kidney complications Diabetes mellitus complication detail: with chronic kidney disease Chronic kidney disease stage : stage 5, not on chronic dialysis Qualified Code(s): E11.22 - Type 2 diabetes mellitus with diabetic chronic kidney disease; N18.5 - Chronic kidney disease, stage 5 Assessment and Plan: HA1C 5.7 about 2 weeks ago Diabetic, renal diet and SSI Complicated by CKD-5 now requiring dialysis Nephrology on board Continue Phoslo given recent elevated phosphorous level of 8.5 (4) HTN (hypertension) Code(s): I10 - ESSENTIAL (PRIMARY) HYPERTENSION Status: Chronic Qualifiers: Hypertension type: essential hypertension Qualified Code(s): I10 - Essential (primary) hypertension Assessment and Plan: Continue dialysis with UF Continue coreg Monitor BP and adjust meds accordingly (5) Anemia Code(s): D64.9 - ANEMIA, UNSPECIFIED Status: Chronic Qualifiers: Anemia type: iron deficiency Iron deficiency anemia type: other iron deficiency Qualified Code(s): D50.8 - Other iron deficiency anemias Assessment and Plan: PO iron supplements Started on EPO by nephrology (6) Vitamin D insufficiency Code(s): E55.9 - VITAMIN D DEFICIENCY, UNSPECIFIED Status: Chronic On PO calcium+Vit D. per nephrology (7) Secondary hyperparathyroidism of renal origin Code(s): N25.81 - SECONDARY HYPERPARATHYROIDISM OF RENAL ORIGIN Status: Chronic On PO vitamin D and phoslo Further mgmt. per nephrology
[2019-11-17] MEDS: Neomycin-Polymyxin-Hc 7.5 ML BOT L EYE SCH ×4 (10:43→21:54)
[2019-11-17] MEDS ORDERED: Heparin 10,000 UNITS/1 ML VIAL ONE (11:46)
[2019-11-17] MEDS: Carvedilol 3.125 MG TAB PO SCH ×2 (12:57→16:11)
[2019-11-17] MEDS: Calcium Carbonate + Vit D 1 TAB PO SCH ×3 (12:57→21:54)
[2019-11-17] MEDS: Ferrous Sulfate 325 MG TAB PO SCH ×2 (12:57→16:10)
[2019-11-17] MEDS: Aspirin 81 mg Enteric Coated Tablet PO SCH (12:57)
[2019-11-17] MEDS ORDERED: Neosporin Ophth Soln 10 ml Bottle L EYE SCH (13:00)
--- NOTE | 2019-11-17 14:10 | PRG ---
DATE OF SERVICE: 11/17/2019 SUBJECTIVE: Patient was seen and examined at bedside and overnight events noted. Patient denies any shortness of breath or chest pain or palpitation. No history of nausea or vomiting or diarrhea or fever or chills or cramps. OBJECTIVE: GENERAL: This is a well-built male, in no apparent distress. VITAL SIGNS: Temperature 97.9. Heart rate 82. Respiratory rate 18. Blood pressure 179/85. HEENT: Atraumatic, normocephalic. Oral mucosa is moist NECK: Supple. CARDIOVASCULAR: S1, S2 heard. Rate and rhythm regular. RESPIRATORY: Clear to auscultation. GASTROINTESTINAL: Abdomen is soft. MUSCULOSKELETAL: No tenderness. No edema. DERMATOLOGIC: No skin rash. NEUROLOGIC: Alert and awake and oriented X3. No focal neurologic deficits. Moving all the extremities. PSYCHIATRIC: Mood and affect normal. LABORATORY DATA: Potassium 4.1, BUN is 125, creatinine is 9.28. ASSESSMENT AND PLAN: 1. End-stage renal disease. Continue on dialysis as tolerated. 2. Hypocalcemia. We will continue on calcium supplement. 3. Hypoalbuminemia. 4. Edema, we will remove fluid. 5. Hypertension. 6. Anemia. We will continue Epogen. Follow with case management about outpatient placement. Plan is to continue on dialysis as tolerated. Job ID: [id number]
[2019-11-17] MEDS: Calcium Acetate 667 MG CAP PO SCH (16:10)
[2019-11-17] MEDS: HumaLOG 300 UNITS/3 ML VIAL SC PRN (17:40)
--- NOTE | 2019-11-17 18:12 | ULT ---
Bilateral lower extremity venous Doppler ultrasound: 11/17/2019 COMPARISON: None HISTORY: Edema, swelling, assess for DVT TECHNIQUE: Multiplanar grayscale sonographic imaging of the venous structures of bilateral lower extr emities obtained with color flow and spectral analysis FINDINGS: The right common femoral vein, greater saphenous vein, profunda femoral vein, and proximal aspect of the femoral vein could not be assessed on this examination secondary to bandaging. The mid and distal right femoral vein, the right popliteal vein, and the right posterior tibial vein are patent. The left common femoral vein, greater saphenous vein, profunda femoral vein, femoral vein, popliteal vein, and posterior tibial vein are patent. No evidence for DVT. IMPRESSION: No evidence for deep venous thrombosis of either lower extremity. A significant portion o f the right venous structures could not be assessed however as detailed above.
--- NOTE | 2019-11-17 20:06 | CON ---
DATE OF CONSULTATION: 11/17/2019 PRIMARY BUSINESS INSIGHT AND ANALYTICS MANAGER: Robbin Irwin MD HISTORY OF PRESENT ILLNESS: Mr. Skaggs is a pleasant 54-year-old gentleman with severely depressed left ventricular function and end-stage renal disease. The patient previously had declined dialysis, but now has agreed to dialysis, re-presented to the emergency room to be admitted and for institution of dialysis. He is not having chest pain. He does have some peripheral edema. His shortness of breath is improved after dialysis, he tells me. MEDICATIONS: At home, 1. Carvedilol 3.125 mg twice a day. 2. Furosemide 80 mg twice a day. He is on atorvastatin and aspirin here. REVIEW OF SYSTEMS: CONSTITUTIONAL: No significant weight loss. VISION: No changes. HEARING: No changes. PULMONARY: Some shortness of breath, improved after dialysis. CARDIAC: No chest pain. GASTROINTESTINAL: No nausea, vomiting, or diarrhea. SKIN: No rashes. NEUROLOGIC: No unilateral weakness or numbness. PSYCHIATRIC: No unusual depression or anxiety. ALLERGIES: NONE KNOWN. PHYSICAL EXAMINATION: GENERAL: This is a pleasant [place] gentleman. VITAL SIGNS: His blood pressure this morning is 121/56, now it is 179/85, pulse 82. LUNGS: Clear. CARDIAC: Normal S1, normal S2. ABDOMEN: Soft, nontender. EXTREMITIES: Moderate edema. ASSESSMENT: 1. End-stage renal disease. 2. Depressed left ventricular function. 3. Anemia. PLAN: 1. The patient is going to have daily dialysis. 2. Continue carvedilol, may increase dose tomorrow if blood pressure remains high. 3. Continue aspirin and statin. Job ID: [id number]
[2019-11-17] MEDS: Atorvastatin Calcium 40 MG TAB PO SCH (21:53)
[2019-11-18] MEDS: Neomycin-Polymyxin-Hc 7.5 ML BOT L EYE SCH ×4 (03:45→13:24)
[2019-11-18 05:06] LABS: #Eosinphils 0.1 thou/uL (0.0-0.7); #Lymphocytes 0.7 thou/uL (1.20-3.40); #Monocytes 0.5 thou/uL (0.11-0.59); #Neutrophils 3.4 thou/uL (1.40-6.50); %Eosinophils 1.8 % (0.0-10.0); %Lymphocytes 13.9 % (21.0-51.0); %Monocytes 10.5 % (0.0-10.0); %Neutrophils 72.7 % (42.0-75.0); Hemoglobin 6.7 g/dL (14.0-18.0); Mean Corpuscular HGB CONC 34.4 g/dL (32.0-36.0); Mean Corpuscular Hemoglobin 31.1 pg (27.0-31.0); Mean Corpuscular Volume 90.4 fL (78.0-98.0); Platelet Count 198 thou/uL (130-400); RBC Distribution Width 13.6 % (11.5-14.5); Red Blood Cell (RBC) Count 2.17 mill/uL (4.70-6.10); White Blood Cell (WBC) Count 4.6 thou/uL (4.8-10.8)
[2019-11-18 05:22] LABS: Anion Gap 15 mmol/L (10-20); BUN (Urea Nitrogen) 80 mg/dL (8.4-25.7); Calc. Creatinine Clearance 13 mL/min (70-130); Calcium 6.6 mg/dL (7.8-10.44); Carbon Dioxide 26 mmol/L (22-29); Chloride 104 mmol/L (98-107); Estimated GFR-MDRD 9; Glucose 115 mg/dL (70-105); Phosphorus 5.8 mg/dL (2.3-4.7); Sodium 141 mmol/L (136-145)
[2019-11-18] MEDS ORDERED: Carvedilol 3.125 MG TAB PO SCH (08:15)
[2019-11-18] MEDS: Heparin 5,000 UNITS/ML VIAL SC SCH ×2 (08:55→21:01)
[2019-11-18] MEDS: Calcium Carbonate + Vit D 1 TAB PO SCH ×3 (08:57→21:01)
[2019-11-18] MEDS: Calcium Acetate 667 MG CAP PO SCH ×2 (08:57→11:01)
[2019-11-18] MEDS ORDERED: READ PPD TEST SITE PO SCH (09:00)
[2019-11-18] MEDS: Ferrous Sulfate 325 MG TAB PO SCH ×2 (11:00→21:00)
[2019-11-18] MEDS: Carvedilol 3.125 MG TAB PO SCH ×2 (11:29→21:01)
--- NOTE | 2019-11-18 13:41 | PDOC.HOSPP ---
- Subjective Encounter Date: 11/18/19 Encounter Time: 13:00 Subjective: Patient reports his swelling in the legs and abdomen is better. No CP, SOB, fever, chills. No cough, nausea or diarrhea. - Objective Vital Signs & Weight: Vital Signs (12 hours) Temp Pulse Resp BP BP Pulse Ox 11/18/19 11:03 98.0 F 79 15 127/60 99 11/18/19 07:14 98.1 F 79 16 168/87 H 93 L 11/18/19 04:12 176/84 H 11/18/19 03:38 97.9 F 72 16 183/87 H 97 Weight Weight 160 lb 0.889 oz I&O: 11/17/19 11/18/19 11/19/19 06:59 06:59 06:59 Intake Total 200 920 Output Total 125 2300 Balance 75 -1380 Result Diagrams: 11/18/19 04:18 11/18/19 04:18 Additional Labs: Accuchecks 11/18/19 11/18/19 11/17/19 10:36 05:36 20:35 POC Glucose 268 H 125 H 167 H 11/17/19 16:45 POC Glucose 267 H Hospitalist ROS - Medication Medications: Active Medications Generic Name Dose Route Start Last Admin Trade Name Freq PRN Reason Stop Dose Admin Acetaminophen 650 mg 11/16/19 17:44 11/17/19 13:01 Tylenol PO 650 mg Q4H PRN Administration Headache/Fever/Mild Pain (1-3) Aspirin 81 mg 11/17/19 09:00 11/17/19 12:57 Ecotrin PO 81 mg DAILY CARLY Administration Atorvastatin Calcium 80 mg 11/16/19 21:00 11/17/19 21:53 Lipitor PO 80 mg HS CARLY Administration Calcium Acetate 1,334 mg 11/17/19 17:00 11/18/19 11:01 Phoslo PO Not Given TID-WM CARLY Calcium/Vitamin D 1 tab 11/16/19 15:00 11/18/19 08:57 Caltrate 600 + Vit D PO 1 tab TID CARLY Administration Epoetin Rusty-epbx 10,000 unit 11/16/19 15:00 11/16/19 18:41 Retacrit SC 10,000 unit Q7D CARLY Administration Ferrous Sulfate 325 mg 11/16/19 17:00 11/18/19 11:00 Feosol PO 325 mg BID-WM CARLY Administration Heparin Sodium (Porcine) 5,000 units 11/17/19 21:00 11/18/19 08:55 Heparin SC Not Given BID [facility] Insulin Human Lispro 0 units 11/16/19 10:19 11/17/19 17:40 Humalog SC 4 unit .MILD SLIDING SCALE PRN Administration Mild Correctional Scale Neomycin/Polymyxin/Hydrocortisone 1 drop 11/17/19 09:00 11/18/19 13:24 Cortisporin Opth L EYE 1 drop Q4HR CARLY Administration Tuberculin PPD 0.1 ml 11/16/19 12:45 11/17/19 05:42 Tuberculin Ppd I-DERMAL 11/19/19 12:46 0.1 ml ONE CARLY Administration - Exam General Appearance: awake alert, ill appearing Eye: PERRL, anicteric sclera ENT: normocephalic atraumatic, no oropharyngeal lesions Neck: supple, symmetric, no thyromegaly Heart: RRR, no murmur, no gallops, normal peripheral pulses Heart - other findings: 3+ bilateral pitting pedal edema Respiratory: CTAB, no wheezes, no rales, normal chest expansion Gastrointestinal: soft, non-tender, non-distended, normal bowel sounds Hosp A/P (1) CHF (congestive heart failure) Code(s): I50.9 - HEART FAILURE, UNSPECIFIED Status: Chronic Qualifiers: Heart failure type: systolic Heart failure chronicity: acute on chronic Qualified Code(s): I50.23 - Acute on chronic systolic (congestive) heart failure (2) Elevated troponin Code(s): R79.89 - OTHER SPECIFIED ABNORMAL FINDINGS OF BLOOD CHEMISTRY Status : Acute (3) DM type 2 (diabetes mellitus, type 2) Status: Chronic Qualifiers: Diabetes mellitus longwall headgate operator insulin use: without mcc use Diabetes mellitus complication status: with kidney complications Diabetes mellitus complication detail: with chronic kidney disease Chronic kidney disease stage : stage 5, not on chronic dialysis Qualified Code(s): E11.22 - Type 2 diabetes mellitus with diabetic chronic kidney disease; N18.5 - Chronic kidney disease, stage 5 (4) HTN (hypertension) Code(s): I10 - ESSENTIAL (PRIMARY) HYPERTENSION Status: Chronic Qualifiers: Hypertension type: essential hypertension Qualified Code(s): I10 - Essential (primary) hypertension (5) Anemia Code(s): D64.9 - ANEMIA, UNSPECIFIED Status: Chronic Qualifiers: Anemia type: iron deficiency Iron deficiency anemia type: other iron deficiency Qualified Code(s): D50.8 - Other iron deficiency anemias (6) Vitamin D insufficiency Code(s): E55.9 - VITAMIN D DEFICIENCY, UNSPECIFIED Status: Chronic (7) Secondary hyperparathyroidism of renal origin Code(s): N25.81 - SECONDARY HYPERPARATHYROIDISM OF RENAL ORIGIN Status: Chronic - Plan DVT proph w/heparin Hospitalist A/P - Problem (1) CHF (congestive heart failure) Code(s): I50.9 - HEART FAILURE, UNSPECIFIED Status: Chronic Qualifiers: Heart failure type: systolic Heart failure chronicity: acute on chronic Qualified Code(s): I50.23 - Acute on chronic systolic (congestive) heart failure Assessment and Plan: ECHO earlier this month with EF of 25-30% Unknown etiology Improving fluid overload with dialysis and UF Cardiology on board - Case DW Dr. Esquivel. Stress test tomorrow AM with Dr. Irwin On life vest now. Continue coreg Eventual ACEI/ARB vs hydralazine+nitrite therapy. High risk due to need for emergent dialysis and risk of lethal arrhythmias; need for further cardiac work up to determine etiology of his CHF (2) Elevated troponin Code(s): R79.89 - OTHER SPECIFIED ABNORMAL FINDINGS OF BLOOD CHEMISTRY Status : Acute Assessment and Plan: Case PARI cardiology. Stress test tomorrow AM. Continue ASA, statin & BB therapy (3) DM type 2 (diabetes mellitus, type 2) Status: Chronic Qualifiers: Diabetes mellitus longwall headgate operator insulin use: without mcc use Diabetes mellitus complication status: with kidney complications Diabetes mellitus complication detail: with chronic kidney disease Chronic kidney disease stage : stage 5, not on chronic dialysis Qualified Code(s): E11.22 - Type 2 diabetes mellitus with diabetic chronic kidney disease; N18.5 - Chronic kidney disease, stage 5 Assessment and Plan: HA1C 5.7 about 2 weeks ago Diabetic, renal diet and SSI Complicated by CKD-5 now requiring dialysis Nephrology on board. Case PARI [place] To get dialysis today with blood transfusion Continue Phoslo given recent elevated phosphorous (4) HTN (hypertension) Code(s): I10 - ESSENTIAL (PRIMARY) HYPERTENSION Status: Chronic Qualifiers: Hypertension type: essential hypertension Qualified Code(s): I10 - Essential (primary) hypertension Assessment and Plan: Continue dialysis with UF Continue coreg. Add Procardia XL due to persistent HTN Monitor BP and adjust meds accordingly (5) Anemia Code(s): D64.9 - ANEMIA, UNSPECIFIED Status: Chronic Qualifiers: Anemia type: iron deficiency Iron deficiency anemia type: other iron deficiency Qualified Code(s): D50.8 - Other iron deficiency anemias Assessment and Plan: PO iron supplements Started on EPO by nephrology Hb today at 6.7. To receive 2 units total of PRBCs with dialysis today (6) Vitamin D insufficiency Code(s): E55.9 - VITAMIN D DEFICIENCY, UNSPECIFIED Status: Chronic On PO calcium+Vit D. per nephrology (7) Secondary hyperparathyroidism of renal origin Code(s): N25.81 - SECONDARY HYPERPARATHYROIDISM OF RENAL ORIGIN Status: Chronic On PO vitamin D and phoslo Further mgmt. per nephrology
[2019-11-18] MEDS: NIFEdipine XL 30 MG TAB PO SCH (20:54)
[2019-11-18] MEDS: Aspirin 81 mg Enteric Coated Tablet PO SCH (20:54)
[2019-11-18] MEDS: Atorvastatin Calcium 40 MG TAB PO SCH (21:01)
[2019-11-19] MEDS: Neomycin-Polymyxin-Hc 7.5 ML BOT L EYE SCH ×6 (02:41→21:25)
[2019-11-19 04:50] LABS: #Eosinphils 0.1 thou/uL (0.0-0.7); #Lymphocytes 0.8 thou/uL (1.20-3.40); #Monocytes 0.5 thou/uL (0.11-0.59); #Neutrophils 3.5 thou/uL (1.40-6.50); %Basophils 0.9 % (0.0-1.0); %Lymphocytes 15.4 % (21.0-51.0); %Monocytes 10.2 % (0.0-10.0); %Neutrophils 71.6 % (42.0-75.0); Hemoglobin 8.7 g/dL (14.0-18.0); Mean Corpuscular HGB CONC 34.2 g/dL (32.0-36.0); Mean Corpuscular Hemoglobin 30.5 pg (27.0-31.0); Mean Corpuscular Volume 89.4 fL (78.0-98.0); Mean Platelet Volume 7.1 fL (7.4-10.4); Platelet Count 152 thou/uL (130-400); Red Blood Cell (RBC) Count 2.86 mill/uL (4.70-6.10); White Blood Cell (WBC) Count 4.9 thou/uL (4.8-10.8)
[2019-11-19 05:34] LABS: ALT (SGPT) 8 U/L (8-55); AST (SGOT) 10 U/L (5-34); Albumin 2.9 g/dL (3.5-5.0); Alkaline Phosphatase 55 U/L (40-110); Anion Gap 13 mmol/L (10-20); BUN (Urea Nitrogen) 81 mg/dL (8.4-25.7); Bilirubin, Total 0.6 mg/dL (0.2-1.2); Calc. Creatinine Clearance 12 mL/min (70-130); Calcium 6.8 mg/dL (7.8-10.44); Carbon Dioxide 27 mmol/L (22-29); Chloride 105 mmol/L (98-107); Estimated GFR-MDRD 8; Globulin 2.7 g/dL (2.4-3.5); Glucose 162 mg/dL (70-105); Phosphorus 5.5 mg/dL (2.3-4.7); Potassium 4.1 mmol/L (3.5-5.1); Protein, Total 5.6 g/dL (6.0-8.3); Sodium 141 mmol/L (136-145)
--- NOTE | 2019-11-19 08:48 | PDOC.HOSPP ---
- Subjective Encounter Date: 11/19/19 Encounter Time: 14:30 Subjective: Patient with decreased edema of abdomen and lower extremities. No other complaints. - Objective Vital Signs & Weight: Vital Signs (12 hours) Temp Pulse Resp BP Pulse Ox 11/19/19 07:50 98.5 F 76 16 141/75 H 95 11/19/19 04:00 97.3 F L 74 18 151/75 H 97 11/19/19 00:00 74 178/88 H 11/18/19 20:54 75 Weight Weight 151 lb 14.376 oz I&O: 11/18/19 11/19/19 11/20/19 06:59 06:59 06:59 Intake Total 920 1900 Output Total 2300 1300 Balance -1380 600 Result Diagrams: 11/19/19 04:30 11/19/19 04:30 Additional Labs: Accuchecks 11/19/19 11/18/19 11/18/19 05:56 20:46 16:52 POC Glucose 142 H 160 H 223 H 11/18/19 10:36 POC Glucose 268 H Hospitalist ROS - Review of Systems Constitutional: denies: fever, chills Respiratory: denies: cough, shortness of breath, pleuritic pain Cardiovascular: reports: edema. denies: chest pain, palpitations, orthopnea Gastrointestinal: denies: nausea, vomiting, abdominal pain - Medication Medications: Active Medications Generic Name Dose Route Start Last Admin Trade Name Freq PRN Reason Stop Dose Admin Acetaminophen 650 mg 11/16/19 17:44 11/17/19 13:01 Tylenol PO 650 mg Q4H PRN Administration Headache/Fever/Mild Pain (1-3) Aspirin 81 mg 11/17/19 09:00 11/18/19 20:54 Ecotrin PO Not Given DAILY CARLY Atorvastatin Calcium 80 mg 11/16/19 21:00 11/18/19 21:01 Lipitor PO 80 mg HS CARLY Administration Calcium/Vitamin D 1 tab 11/16/19 15:00 11/18/19 21:01 Caltrate 600 + Vit D PO 1 tab TID CARLY Administration Carvedilol 6.25 mg 11/18/19 17:00 11/18/19 21:01 Coreg PO 6.25 mg BID-WM CARLY Administration Epoetin Rusty-epbx 10,000 unit 11/16/19 15:00 11/16/19 18:41 Retacrit SC 10,000 unit Q7D CARLY Administration Ferrous Sulfate 325 mg 11/16/19 17:00 11/18/19 21:00 Feosol PO 325 mg BID-WM CARLY Administration Heparin Sodium (Porcine) 5,000 units 11/17/19 21:00 11/18/19 21:01 Heparin SC Not Given BID CARLY Insulin Human Lispro 0 units 11/16/19 10:19 11/17/19 17:40 Humalog SC 4 unit .MILD SLIDING SCALE PRN Administration Mild Correctional Scale Neomycin/Polymyxin/Hydrocortisone 1 drop 11/17/19 09:00 11/19/19 05:18 Cortisporin Opth L EYE 1 drop Q4HR CARLY Administration Nifedipine 30 mg 11/18/19 09:00 11/18/19 20:54 Procardia Xl PO Not Given DAILY CARLY Tuberculin PPD 0.1 ml 11/16/19 12:45 11/17/19 05:42 Tuberculin Ppd I-DERMAL 11/19/19 12:46 0.1 ml ONE CARLY Administration - Exam General Appearance: NAD Eye: anicteric sclera ENT: moist mucosa Heart: RRR, no murmur, no gallops, no rubs Respiratory: CTAB, no wheezes, no rales, no ronchi Gastrointestinal: soft, non-tender, non-distended Extremities: 1+ LE edema Psychiatric: normal affect, normal behavior, A&O x 3 Hosp A/P (1) Acute on chronic systolic (congestive) heart failure Code(s): I50.23 - ACUTE ON CHRONIC SYSTOLIC (CONGESTIVE) HEART FAILURE Status : Acute - Plan out of bed/ambulate (1) CHF (congestive heart failure) Code(s): I50.9 - HEART FAILURE, UNSPECIFIED Status: Chronic Qualifiers: Heart failure type: systolic Heart failure chronicity: acute on chronic Qualified Code(s): I50.23 - Acute on chronic systolic (congestive) heart failure Assessment and Plan: ECHO earlier this month with EF of 25-30% Unknown etiology Improving fluid overload with dialysis and UF Cardiology on board - Case DW Dr. Esquivel. Stress test today with Dr. Irwin On life vest now. Continue coreg Eventual ACEI/ARB vs hydralazine+nitrite therapy. High risk due to need for emergent dialysis and risk of lethal arrhythmias; need for further cardiac work up to determine etiology of his CHF Stress test with evidence of left sided ischemia (2) Elevated troponin Code(s): R79.89 - OTHER SPECIFIED ABNORMAL FINDINGS OF BLOOD CHEMISTRY Status : Acute Assessment and Plan: Case DW cardiology. Stress today AM- possible left sided ischemia Continue ASA, statin & BB therapy (3) DM type 2 (diabetes mellitus, type 2) Status: Chronic Qualifiers: Diabetes mellitus elementary secretary insulin use: without chcf use Diabetes mellitus complication status: with kidney complications Diabetes mellitus complication detail: with chronic kidney disease Chronic kidney disease stage : stage 5, not on chronic dialysis Qualified Code(s): E11.22 - Type 2 diabetes mellitus with diabetic chronic kidney disease; N18.5 - Chronic kidney disease, stage 5 Assessment and Plan: HA1C 5.7 about 2 weeks ago Diabetic, renal diet and SSI Complicated by CKD-5 now requiring dialysis (4) HTN (hypertension) Code(s): I10 - ESSENTIAL (PRIMARY) HYPERTENSION Status: Chronic Qualifiers: Hypertension type: essential hypertension Qualified Code(s): I10 - Essential (primary) hypertension Assessment and Plan: Continue dialysis with UF Continue coreg. Add Procardia XL due to persistent HTN Monitor BP and adjust meds accordingly (5) Anemia Code(s): D64.9 - ANEMIA, UNSPECIFIED Status: Chronic Qualifiers: Anemia type: iron deficiency Iron deficiency anemia type: other iron deficiency Qualified Code(s): D50.8 - Other iron deficiency anemias Assessment and Plan: PO iron supplements Started on EPO by nephrology Hb today at 8.7 after 2 units PRBC transfusion. (6) Vitamin D insufficiency Code(s): E55.9 - VITAMIN D DEFICIENCY, UNSPECIFIED Status: Chronic On PO calcium+Vit D. per nephrology (7) Secondary hyperparathyroidism of renal origin Code(s): N25.81 - SECONDARY HYPERPARATHYROIDISM OF RENAL ORIGIN Status: Chronic On PO vitamin D and phoslo Further mgmt. per nephrology
[2019-11-19] MEDS ORDERED: Heparin 10,000 UNITS/1 ML VIAL ONE (09:26)
[2019-11-19] MEDS: Ferrous Sulfate 325 MG TAB PO SCH ×2 (09:58→16:24)
[2019-11-19] MEDS: Aspirin 81 mg Enteric Coated Tablet PO SCH (09:58)
[2019-11-19] MEDS: Calcium Carbonate + Vit D 1 TAB PO SCH ×3 (09:58→20:48)
[2019-11-19] MEDS: Carvedilol 3.125 MG TAB PO SCH ×2 (09:59→16:25)
[2019-11-19] MEDS: Heparin 5,000 UNITS/ML VIAL SC SCH ×2 (09:59→20:51)
[2019-11-19] MEDS: NIFEdipine XL 30 MG TAB PO SCH (09:59)
--- NOTE | 2019-11-19 11:59 | PRG ---
DATE OF SERVICE: 11/19/2019 SUBJECTIVE: Patient was seen and examined at bedside and overnight events noted. Patient denies any shortness of breath or chest pain or palpitation. No history of nausea or vomiting or diarrhea or fever or chills or cramps. OBJECTIVE: GENERAL: This is a well-built male, in no apparent distress. VITAL SIGNS: Temperature 98.5. Heart rate 76. Respiratory rate 16. Blood pressure 141/75. HEENT: Atraumatic, normocephalic. Oral mucosa is moist NECK: Supple. CARDIOVASCULAR: S1, S2 heard. Rate and rhythm regular. RESPIRATORY: Clear to auscultation. GASTROINTESTINAL: Abdomen is soft. MUSCULOSKELETAL: No tenderness. No edema. DERMATOLOGIC: No skin rash. NEUROLOGIC: Alert and awake and oriented X3. No focal neurologic deficits. Moving all the extremities. PSYCHIATRIC: Mood and affect normal. LABORATORY DATA: Potassium 4.1, BUN is 81, and creatinine is 6.8. ASSESSMENT AND PLAN: 1. End-stage renal disease. Continue dialysis as tolerated. 2. Hypocalcemia. 3. Hypoalbuminemia. 4. Edema. 5. Hypertension. 6. Anemia. Plan to continue on dialysis as tolerated. Most likely Tuesday, Tuesday, and Tuesday. Job ID: [id number]
--- NOTE | 2019-11-19 13:24 | ULT ---
VASCULAR MAPPING ULTRASOUND OF THE UPPER EXTREMITIES: DATE: 11/19/2019. HISTORY: End-stage renal disease, evaluate for dialysis access. TECHNIQUE: Multiplanar, pastrana scale, sonographic imaging of the vascular structures bilateral upper extremities o btained with color flow and spectral analysis. FINDINGS: Internal jugular vein, subclavian vein, and axillary vein patent bilaterally. Bilateral cephalic and basilic veins are patent. VESSEL DIAMETER (MM) Right brachial artery 2.8 Right radial artery 2.2 Right ulnar artery 2.2 Left brachial artery 4.3 Left radial artery 2.4 Left ulnar artery 2.4 Right Cephalic Vein: Above elbow proximal 1.6 Above elbow mid 1.6 Above elbow distal 1.4 At elbow 1.7 Below elbow proximal 1.4 Below elbow mid 1.0 Below elbow distal 0.7 Right Basilic Vein: Above elbow proximal 2.4 Above elbow mid 2.4 Above elbow distal 2.3 At elbow 3.8 Below elbow proximal 1.1 Below elbow mid 1.0 Below elbow distal 0.9 Left Basilic Vein: Above elbow proximal 2.9 Above elbow mid 3.6 Above elbow distal 1.4 At elbow 2.1 Below elbow proximal 1.4 Below elbow mid 1.5 Below elbow distal 1.4 Left Cephalic Vein: Above elbow proximal 2.4 Above elbow mid 2.8 Above elbow distal 2.8 At elbow 3.2 Below elbow proximal 2.2 Below elbow mid 1.8 Below elbow distal 1.7 IMPRESSION: Bilateral upper extremity vascular mapping as detailed above. POS: [facility]
--- NOTE | 2019-11-19 14:01 | NM ---
EXAM: Nuclear medicine cardiac perfusion examination with ejection fraction HISTORY: Chest pain TECHNIQUE: Rest images: 9.4 mCi technetium 99m sestamibi Stress images: 29 mCi of technetium 9M sestamibi; Lexiscan COMPARISON: None FINDINGS: Tomographic images: There is a small sized, mild intensity reversible perfusion defect along the late ral wall. Gated images: Global hypokinesis with ejection fraction of 29%. EDV: 178 mL LHR: 0.2 TID: 1.1 IMPRESSION: 1. Possible lateral ischemia 2. Global hypokinesis and poor ejection fraction
[2019-11-19] MEDS ORDERED: Regadenoson 0.4 MG/5 ML SYRINGE ONE (16:23)
[2019-11-19] MEDS ORDERED: CEFAZOLIN 2 GM in Premix Bag 1 BAG IVPB SCH (16:45)
[2019-11-19] MEDS: HumaLOG 300 UNITS/3 ML VIAL SC PRN (17:40)
--- NOTE | 2019-11-19 19:59 | CON ---
DATE OF CONSULTATION: HISTORY OF PRESENT ILLNESS: Jeffery Skaggs, 54-year-old male patient, lives in [place]. He has known history of diabetes and hypertension, chronic kidney disease, followed by Dr. Patricia. I have been asked to see him regarding dialysis access. He has had a temporary right femoral vein dialysis catheter placed and he has been undergoing dialysis. He had a nuclear stress test today which showed global hypokinesis, possible lateral ischemia. Ejection fraction of 29%. Echocardiogram, 11/09/2019, reveals 28% to 30% ejection fraction. He has been followed by Dr. Esquivel. He has been undergoing dialysis via right femoral dialysis catheter. He has had ultrasound vein mapping in both arms noting left arm fistula to be superior, left arm veins to be superior. Right cephalic vein 1.6, 1.6, 1.4, 1.7 mm, basilic vein 2.4, 2.4, 2.3, 3.8 mm, left basilic vein 2.9, 3.6, 1.4 mm, left cephalic vein 2.4, 2.8, 2.8, 3.2 mm. Plan is for left arm fistula, hemodialysis catheter placement, IJ and central line IJ. He understands risks and benefits, consents. ALLERGIES: NONE. TOBACCO: None. ALCOHOL: None. MEDICATIONS: 1. Furosemide. 2. Carvedilol. 3. Insulin, started in the hospital, sliding scale. PAST SURGICAL HISTORY: Right transmetatarsal amputation foot. PAST MEDICAL HISTORY: End-stage renal disease, diabetes mellitus, hypertension, glaucoma, eye surgery in the past. SOCIAL HISTORY: The patient lives in [place]. He is retired. Alcohol cessation more than 10 years ago. Tobacco, more than 10 years ago, cessation. PHYSICAL EXAMINATION: VITAL SIGNS: Height 5 feet 1 inch, height 151 pounds, temperature 98.4, pulse 82, blood pressure . LUNGS: Clear to auscultation. CARDIAC: Regular rate and rhythm without murmur or gallop. ABDOMEN: Soft and nontender. Right groin dialysis catheter. EXTREMITIES: Right transmetatarsal amputation. IV, left hand. ASSESSMENT/PLAN: 1. End-stage renal disease. We will plan placement of hemodialysis catheter, left arm fistula, and a central line tomorrow. He understands risks and benefits and consents. We will remove his hemodialysis catheter, groin, tomorrow after surgery. 2. Coronary artery disease, cardiomyopathy, possibly ischemic. Await Cardiology input. Job ID: [id number]
[2019-11-19] MEDS: Atorvastatin Calcium 40 MG TAB PO SCH (20:48)
[2019-11-20] MEDS: Neomycin-Polymyxin-Hc 7.5 ML BOT L EYE SCH ×6 (01:13→20:26)
[2019-11-20] MEDS: Carvedilol 3.125 MG TAB PO SCH (05:45)
--- NOTE | 2019-11-20 08:10 | PDOC.HOSPP ---
- Subjective Encounter Date: 11/20/19 Encounter Time: 14:30 Subjective: Patient with improved SOB. No chest pain. - Objective Vital Signs & Weight: Vital Signs (12 hours) Temp Pulse Resp BP Pulse Ox 11/20/19 03:49 98.3 F 77 18 167/73 H 92 L Weight Weight 147 lb 11.355 oz I&O: 11/19/19 11/20/19 11/21/19 06:59 06:59 06:59 Intake Total 1900 450 Output Total 1300 2000 Balance 600 -1550 Result Diagrams: 11/19/19 04:30 11/19/19 04:30 Additional Labs: Accuchecks 11/20/19 11/19/19 11/19/19 06:09 21:12 16:39 POC Glucose 132 H 194 H 276 H 11/19/19 14:09 POC Glucose 146 H Hospitalist ROS - Review of Systems Constitutional: denies: fever, chills Respiratory: denies: cough, shortness of breath Cardiovascular: denies: chest pain, palpitations Gastrointestinal: denies: nausea, vomiting, abdominal pain - Medication Medications: Active Medications Generic Name Dose Route Start Last Admin Trade Name Freq PRN Reason Stop Dose Admin Acetaminophen 650 mg 11/16/19 17:44 11/17/19 13:01 Tylenol PO 650 mg Q4H PRN Administration Headache/Fever/Mild Pain (1-3) Aspirin 81 mg 11/17/19 09:00 11/19/19 09:58 Ecotrin PO 81 mg DAILY CARLY Administration Atorvastatin Calcium 80 mg 11/16/19 21:00 11/19/19 20:48 Lipitor PO 80 mg HS CARLY Administration Calcium/Vitamin D 1 tab 11/16/19 15:00 11/19/19 20:48 Caltrate 600 + Vit D PO 1 tab TID CARLY Administration Carvedilol 6.25 mg 11/18/19 17:00 11/20/19 05:45 Coreg PO 6.25 mg BID- CARLY Administration Epoetin Rusty-epbx 10,000 unit 11/16/19 15:00 11/16/19 18:41 Retacrit SC 10,000 unit Q7D [facility] Administration Ferrous Sulfate 325 mg 11/16/19 17:00 11/19/19 16:24 Feosol PO 325 mg BID-WM CARLY Administration Heparin Sodium (Porcine) 5,000 units 11/17/19 21:00 11/19/19 20:51 Heparin SC 5,000 units BID [facility] Administration Insulin Human Lispro 0 units 11/16/19 10:19 11/19/19 17:40 Humalog SC 4 unit .MILD SLIDING SCALE PRN Administration Mild Correctional Scale Neomycin/Polymyxin/Hydrocortisone 1 drop 11/17/19 09:00 11/20/19 05:45 Cortisporin Opth L EYE 1 drop Q4HR CARLY Administration Nifedipine 30 mg 11/18/19 09:00 11/19/19 09:59 Procardia Xl PO Not Given DAILY CARLY - Exam General Appearance: NAD Eye: anicteric sclera ENT: no oropharyngeal lesions Heart: RRR, no murmur, no gallops, no rubs Respiratory: CTAB, no wheezes, no rales, no ronchi, no tachypnea Gastrointestinal: soft, non-tender, non-distended, normal bowel sounds Psychiatric: normal affect, normal behavior, A&O x 3 Hosp A/P (1) Acute on chronic systolic (congestive) heart failure Code(s): I50.23 - ACUTE ON CHRONIC SYSTOLIC (CONGESTIVE) HEART FAILURE Status : Acute - Plan (1) CHF (congestive heart failure) Code(s): I50.9 - HEART FAILURE, UNSPECIFIED Status: Chronic Qualifiers: Heart failure type: systolic Heart failure chronicity: acute on chronic Qualified Code(s): I50.23 - Acute on chronic systolic (congestive) heart failure Assessment and Plan: ECHO earlier this month with EF of 25-30% Unknown etiology Improving fluid overload with dialysis and UF On life vest now. Continue coreg Eventual ACEI/ARB vs hydralazine+nitrite therapy. High risk due to need for emergent dialysis and risk of lethal arrhythmias; need for further cardiac work up to determine etiology of his CHF Stress test with evidence of left sided ischemia- awaiting Dc isaacs (2) Elevated troponin Code(s): R79.89 - OTHER SPECIFIED ABNORMAL FINDINGS OF BLOOD CHEMISTRY Status : Acute Assessment and Plan: Case DW cardiology. Stress- possible left sided ischemia Continue ASA, statin & BB therapy (3) DM type 2 (diabetes mellitus, type 2) Status: Chronic Qualifiers: Diabetes mellitus fci insulin use: without termite exterminator use Diabetes mellitus complication status: with kidney complications Diabetes mellitus complication detail: with chronic kidney disease Chronic kidney disease stage : stage 5, not on chronic dialysis Qualified Code(s): E11.22 - Type 2 diabetes mellitus with diabetic chronic kidney disease; N18.5 - Chronic kidney disease, stage 5 Assessment and Plan: HA1C 5.7 about 2 weeks ago Diabetic, renal diet and SSI Complicated by CKD-5 now requiring dialysis (4) HTN (hypertension) Code(s): I10 - ESSENTIAL (PRIMARY) HYPERTENSION Status: Chronic Qualifiers: Hypertension type: essential hypertension Qualified Code(s): I10 - Essential (primary) hypertension Assessment and Plan: Continue dialysis with UF Continue coreg. Add Procardia XL due to persistent HTN Monitor BP and adjust meds accordingly (5) Anemia Code(s): D64.9 - ANEMIA, UNSPECIFIED Status: Chronic Qualifiers: Anemia type: iron deficiency Iron deficiency anemia type: other iron deficiency Qualified Code(s): D50.8 - Other iron deficiency anemias Assessment and Plan: PO iron supplements Started on EPO by nephrology Hb today at 8.7 after 2 units PRBC transfusion. (6) Vitamin D insufficiency Code(s): E55.9 - VITAMIN D DEFICIENCY, UNSPECIFIED Status: Chronic On PO calcium+Vit D. per nephrology (7) Secondary hyperparathyroidism of renal origin Code(s): N25.81 - SECONDARY HYPERPARATHYROIDISM OF RENAL ORIGIN Status: Chronic On PO vitamin D and phoslo Further mgmt. per nephrology
[2019-11-20] MEDS: NIFEdipine XL 30 MG TAB PO SCH (09:32)
[2019-11-20] MEDS: Aspirin 81 mg Enteric Coated Tablet PO SCH ×2 (09:33→13:12)
[2019-11-20] MEDS: Ferrous Sulfate 325 MG TAB PO SCH (09:33)
[2019-11-20] MEDS: Calcium Carbonate + Vit D 1 TAB PO SCH ×2 (09:33→20:26)
[2019-11-20] MEDS: Heparin 5,000 UNITS/ML VIAL SC SCH ×3 (09:33→20:26)
--- NOTE | 2019-11-20 11:09 | PRG ---
DATE OF SERVICE: 11/18/2019 SUBJECTIVE: Patient was seen and examined at bedside and overnight events noted. Patient denies any shortness of breath or chest pain or palpitation. No history of nausea or vomiting or diarrhea or fever or chills or cramps. OBJECTIVE: GENERAL: This is a well-built male, in no apparent distress. VITAL SIGNS: Temperature . Respiratory rate 18. Blood pressure 127/60. HEENT: Atraumatic, normocephalic. Oral mucosa is moist NECK: Supple. CARDIOVASCULAR: S1, S2 heard. Rate and rhythm regular. RESPIRATORY: Clear to auscultation. GASTROINTESTINAL: Abdomen is soft. MUSCULOSKELETAL: No tenderness. No edema. DERMATOLOGIC: No skin rash. NEUROLOGIC: Alert and awake and oriented X3. No focal neurologic deficits. Moving all the extremities. PSYCHIATRIC: Mood and affect normal. LABORATORY DATA: Potassium 4.0, BUN is , hemoglobin 6.7. ASSESSMENT AND PLAN: 1. End-stage renal disease. Continue on dialysis. The patient is getting blood today. We will have dialysis for 2 hours. 2. Anemia. Plan to have dialysis today with blood transfusion. 3. Hypocalcemia, slowly getting better. 4. . 5. Edema. We will remove fluid. 6. Hypertension. Plan to continue on dialysis as tolerated. Job ID: [id number]
--- NOTE | 2019-11-20 13:25 | PRG ---
DATE OF SERVICE: 11/20/2019 SUBJECTIVE: Patient was seen and examined at bedside and overnight events noted. Patient denies any shortness of breath or chest pain or palpitation. No history of nausea or vomiting or diarrhea or fever or chills or cramps. OBJECTIVE: GENERAL: This is a well-built male, in no apparent distress. VITAL SIGNS: Temperature 98.5, pulse 76, respiratory rate 16, and blood pressure 145/58. HEENT: Atraumatic, normocephalic. Oral mucosa is moist NECK: Supple. CARDIOVASCULAR: S1, S2 heard. Rate and rhythm regular. RESPIRATORY: Clear to auscultation. GASTROINTESTINAL: Abdomen is soft. MUSCULOSKELETAL: No tenderness. No edema. DERMATOLOGIC: No skin rash. NEUROLOGIC: Alert and awake and oriented X3. No focal neurologic deficits. Moving all the extremities. PSYCHIATRIC: Mood and affect normal. LABORATORY DATA: Not done today. ASSESSMENT AND PLAN: 1. End-stage renal disease. Continue on dialysis as tolerated. 2. Hypocalcemia. We will monitor. 3. Edema. 4. History of hypertension. 5. Anemia. Monitor labs. Plan to continue dialysis as tolerated. Job ID: [id number]
--- NOTE | 2019-11-20 14:45 | PRG ---
DATE OF SERVICE: 11/20/2019 Mr. Skaggs today is doing well. He did have scheduled hemodialysis catheter in the fistula today, but OR crew and Anesthesia resources are not available to do that today. Thus, it will be scheduled for . I have communicated that with the patient. He needs hemodialysis catheter tunneled and an arm fistula. That is scheduled for about noon . He had an abnormal cardiac stress test that needs to be addressed by Cardiology. Job ID: [id number]
[2019-11-20] MEDS: Carvedilol 6.25 MG TAB PO SCH (16:50)
[2019-11-20] MEDS: HumaLOG 300 UNITS/3 ML VIAL SC PRN (18:01)
[2019-11-20] MEDS: Atorvastatin Calcium 40 MG TAB PO SCH (20:26)
[2019-11-21] MEDS: Neomycin-Polymyxin-Hc 7.5 ML BOT L EYE SCH ×6 (02:37→20:36)
[2019-11-21 05:41] LABS: Anion Gap 14 mmol/L (10-20); BUN (Urea Nitrogen) 72 mg/dL (8.4-25.7); Calc. Creatinine Clearance 12 mL/min (70-130); Calcium 7.4 mg/dL (7.8-10.44); Carbon Dioxide 25 mmol/L (22-29); Chloride 104 mmol/L (98-107); Estimated GFR-MDRD 9; Glucose 141 mg/dL (70-105); Potassium 4.4 mmol/L (3.5-5.1); Sodium 139 mmol/L (136-145)
--- NOTE | 2019-11-21 08:02 | PDOC.HOSPP ---
- Subjective Encounter Date: 11/21/19 Encounter Time: 16:00 Subjective: Patient had dialysis today. No complaints. - Objective Vital Signs & Weight: Vital Signs (12 hours) Temp Pulse Resp BP Pulse Ox 11/21/19 07:40 97.6 F 77 16 141/63 H 96 11/21/19 05:13 98.9 F 77 18 132/57 L 11/21/19 00:00 68 18 11/20/19 20:00 97.0 F L 63 20 113/54 L 62 L Weight Weight 150 lb 0.266 oz I&O: 11/20/19 11/21/19 11/22/19 06:59 06:59 06:59 Intake Total 450 960 Output Total 2000 Balance -1550 960 Result Diagrams: 11/19/19 04:30 11/21/19 04:51 Additional Labs: Accuchecks 11/21/19 11/20/19 11/20/19 05:46 20:00 16:44 POC Glucose 143 H 225 H 248 H 11/20/19 10:46 POC Glucose 127 H Hospitalist ROS - Review of Systems Constitutional: denies: fever, chills Respiratory: denies: cough, shortness of breath Cardiovascular: denies: chest pain, palpitations Gastrointestinal: denies: nausea, vomiting, abdominal pain - Medication Medications: Active Medications Generic Name Dose Route Start Last Admin Trade Name Freq PRN Reason Stop Dose Admin Acetaminophen 650 mg 11/16/19 17:44 11/17/19 13:01 Tylenol PO 650 mg Q4H PRN Administration Headache/Fever/Mild Pain (1-3) Aspirin 81 mg 11/17/19 09:00 11/20/19 13:12 Ecotrin PO 81 mg DAILY CARLY Administration Atorvastatin Calcium 80 mg 11/16/19 21:00 11/20/19 20:26 Lipitor PO 80 mg HS CARLY Administration Calcium/Vitamin D 1 tab 11/20/19 21:00 11/20/19 20:26 Caltrate 600 + Vit D PO 1 tab BID CARLY Administration Carvedilol 12.5 mg 11/20/19 17:00 11/20/19 16:50 Coreg PO 12.5 mg BID-WM CARLY Administration Epoetin Rusty-epbx 10,000 unit 11/16/19 15:00 11/16/19 18:41 Retacrit SC 10,000 unit Q7D [facility] Administration Heparin Sodium (Porcine) 5,000 units 11/17/19 21:00 11/20/19 20:26 Heparin SC Not Given BID [facility] Insulin Human Lispro 0 units 11/16/19 10:19 11/20/19 18:01 Humalog SC 3 unit .MILD SLIDING SCALE PRN Administration Mild Correctional Scale Neomycin/Polymyxin/Hydrocortisone 1 drop 11/17/19 09:00 11/21/19 05:15 Cortisporin Opth L EYE 1 drop Q4HR CARLY Administration - Exam General Appearance: NAD, awake alert ENT: moist mucosa Heart: RRR, no murmur, no gallops, no rubs Respiratory: CTAB, no wheezes, no rales, no ronchi Gastrointestinal: soft, non-tender, non-distended, normal bowel sounds Extremities - other findings: edema improved Psychiatric: normal affect, normal behavior, A&O x 3 Hosp A/P (1) Acute on chronic systolic (congestive) heart failure Code(s): I50.23 - ACUTE ON CHRONIC SYSTOLIC (CONGESTIVE) HEART FAILURE Status : Acute - Plan (1) CHF (congestive heart failure) Code(s): I50.9 - HEART FAILURE, UNSPECIFIED Status: Chronic Qualifiers: Heart failure type: systolic Heart failure chronicity: acute on chronic Qualified Code(s): I50.23 - Acute on chronic systolic (congestive) heart failure Assessment and Plan: ECHO earlier this month with EF of 25-30% Unknown etiology Improving fluid overload with dialysis and UF On life vest now. Continue coreg Eventual ACEI/ARB vs hydralazine+nitrite therapy. High risk due to need for emergent dialysis and risk of lethal arrhythmias; need for further cardiac work up to determine etiology of his CHF Stress test with evidence of left sided ischemia- plan for cardiac cath on 2019 (2) Elevated troponin Code(s): R79.89 - OTHER SPECIFIED ABNORMAL FINDINGS OF BLOOD CHEMISTRY Status : Acute Assessment and Plan: Case cardiology. Stress- possible left sided ischemia, cath on 11/23/2019 Continue ASA, statin & BB therapy (3) DM type 2 (diabetes mellitus, type 2) Status: Chronic Qualifiers: Diabetes mellitus rat exterminator insulin use: without nursing home use Diabetes mellitus complication status: with kidney complications Diabetes mellitus complication detail: with chronic kidney disease Chronic kidney disease stage : stage 5, not on chronic dialysis Qualified Code(s): E11.22 - Type 2 diabetes mellitus with diabetic chronic kidney disease; N18.5 - Chronic kidney disease, stage 5 Assessment and Plan: HA1C 5.7 about 2 weeks ago Diabetic, renal diet and SSI Complicated by CKD-5 now requiring dialysis (4) HTN (hypertension) Code(s): I10 - ESSENTIAL (PRIMARY) HYPERTENSION Status: Chronic Qualifiers: Hypertension type: essential hypertension Qualified Code(s): I10 - Essential (primary) hypertension Assessment and Plan: Continue dialysis with UF Continue coreg. Add Procardia XL due to persistent HTN Monitor BP and adjust meds accordingly (5) End Stage Renal Disease on Dialysis Patient getting dialysis Cuffed cath placement planned 11/22/2019 (6) Vitamin D insufficiency Code(s): E55.9 - VITAMIN D DEFICIENCY, UNSPECIFIED Status: Chronic On PO calcium+Vit D. per nephrology (7) Secondary hyperparathyroidism of renal origin Code(s): N25.81 - SECONDARY HYPERPARATHYROIDISM OF RENAL ORIGIN Status: Chronic On PO vitamin D and phoslo Further mgmt. per nephrology
[2019-11-21] MEDS: Aspirin 81 mg Enteric Coated Tablet PO SCH (11:54)
[2019-11-21] MEDS: Calcium Carbonate + Vit D 1 TAB PO SCH ×2 (11:55→20:35)
[2019-11-21] MEDS: Heparin 5,000 UNITS/ML VIAL SC SCH ×2 (11:55→20:35)
[2019-11-21] MEDS: Carvedilol 6.25 MG TAB PO SCH ×2 (11:55→17:46)
--- NOTE | 2019-11-21 14:09 | PRG ---
DATE OF SERVICE: 11/21/2019 SUBJECTIVE: Patient was seen and examined at bedside and overnight events noted. Patient denies any shortness of breath or chest pain or palpitation. No history of nausea or vomiting or diarrhea or fever or chills or cramps. OBJECTIVE: GENERAL: This is a well-built male, in no apparent distress. VITAL SIGNS: Temperature 98.1, pulse 80, respiratory rate 16, and blood pressure . HEENT: Atraumatic, normocephalic. Oral mucosa is moist NECK: Supple. CARDIOVASCULAR: S1, S2 heard. Rate and rhythm regular. RESPIRATORY: Clear to auscultation. GASTROINTESTINAL: Abdomen is soft. MUSCULOSKELETAL: 2+ edema. DERMATOLOGIC: No skin rash. NEUROLOGIC: Alert and awake and oriented X3. No focal neurologic deficits. Moving all the extremities. PSYCHIATRIC: Mood and affect normal. LABORATORY DATA: Potassium 4.4, BUN is 72, and creatinine is 6.6. ASSESSMENT AND PLAN: 1. End-stage renal disease. Continue on hemodialysis as tolerated. 2. Hypocalcemia. 3. Edema. 4. History of hypertension. 5. Anemia of chronic disease. Continue on dialysis as tolerated. Follow with Case Management for outpatient placement. Job ID: [id number]
--- NOTE | 2019-11-21 17:24 | PDOC.CPN ---
- Subjective Date: 11/21/19 Time: 17:29 Interval history: The pt seen and examined. No overnight events. No cardiac complaints. - Objective Allergies/Adverse Reactions: Allergies Allergy/AdvReac Type Severity Reaction Status Date / Time No Known Drug Allergies Allergy Verified 05/30/16 20:36 Visit Medications: Current Medications Acetaminophen (Tylenol) 650 mg PO Q4H PRN PRN Reason: Headache/Fever/Mild Pain (1-3) Last Admin: 11/17/19 13:01 Dose: 650 mg Aspirin (Ecotrin) 81 mg PO DAILY [facility] Last Admin: 11/21/19 11:54 Dose: 81 mg Atorvastatin Calcium (Lipitor) 80 mg PO HS [facility] Last Admin: 11/20/19 20:26 Dose: 80 mg Calcium/Vitamin D (Caltrate 600 + Vit D) 1 tab PO BID [facility] Last Admin: 11/21/19 11:55 Dose: 1 tab Carvedilol (Coreg) 12.5 mg PO BID-WM [facility] Last Admin: 11/21/19 11:55 Dose: 12.5 mg Dextrose/Water (Dextrose 50%) 25 gm SLOW IVP PRN PRN PRN Reason: Hypoglycemia Epoetin Rusty-epbx (Retacrit) 10,000 unit SC Q7D [facility] Last Admin: 11/16/19 18:41 Dose: 10,000 unit Glucagon (Glucagon) 1 mg IM PRN PRN PRN Reason: Hypoglycemia Heparin Sodium (Porcine) (Heparin) 5,000 units SC BID [facility] Last Admin: 11/21/19 11:55 Dose: 5,000 units Dextrose/Water (D5w) 1,000 mls @ 0 mls/hr IV .Q0M PRN PRN Reason: Hypoglycemia Cefazolin Sodium/Dextrose 2 gm (/ Device) 50 mls @ 100 mls/hr IVPB ONCALL-OR [facility] Insulin Human Lispro (Humalog) 0 units SC .MILD SLIDING SCALE PRN PRN Reason: Mild Correctional Scale Last Admin: 11/20/19 18:01 Dose: 3 unit Neomycin/Polymyxin/Hydrocortisone (Cortisporin Opth) 1 drop L EYE Q4HR [facility] Last Admin: 11/21/19 12:53 Dose: Not Given Ondansetron HCl (Zofran) 4 mg IVP Q6H PRN PRN Reason: Nausea/Vomiting Paricalcitol (Zemplar) 1 mcg IVP We CARLY Last Admin: 11/21/19 12:52 Dose: Not Given Senna/Docusate Sodium (Senokot S) 2 tab PO BIDPRN PRN PRN Reason: Constipation Sodium Chloride (Flush - Normal Saline) 10 ml IVF PRN PRN PRN Reason: Saline Flush Vital Signs & Weight: Vital Signs Temp Pulse Resp BP Pulse Ox 11/21/19 11:50 98.1 F 80 16 142/50 H 98 11/21/19 07:40 97.6 F 77 16 141/63 H 96 Weight 150 lb 0.266 oz - Physical Exam General: alert & oriented x3 HEENT: mucus membranes moist Neck: supple neck Cardiac: regular rate and rhythm, S1/S2 Lungs: decreased breath sounds Extremities: other: (2+ pitting RLE edema; Lt toe amputation) - Labs Result Diagrams: 11/19/19 04:30 11/21/19 04:51 Troponin/CKMB CK-MB (CK-2) 11.8 ng/mL (0-6.6) H* 11/16/19 07:18 Troponin I 0.141 ng/mL (< 0.028) H 11/16/19 19:07 - Telemetry Sinus rhythms and dysrhythmias: sinus rhythm - Assessment/Plan Assessment/Plan: 1. Abnormal stress test - stress test on 11/09/2019 showed possible lateral ischemia and global hypokenisis with EF 29%; possible cath by Dr Irwin on Tuesday after the pt undergo HD cath placement? 2. Acute on chronic systolic HF with EF 25-30% in 10/2019 - stable with RA; on HD and Coreg; not on HENNA/ARB due to hx of CKD; On LifeVest 3. HTN - 4. DM type 2 - 5. ESRD on HD - plan for HD cath placement tomorrow MAR reviewed * Echo on 11/09/2019 with EF 25-30%, Lt pleural effusion, mod dilated LA, mod MR , mild AR and PA, severe TR Pt. seen and eval. by me. I agree with the A/P by the SECRETARY. Plan for cath later this week. Chest clear. RRR. gjmays
[2019-11-21] MEDS: HumaLOG 300 UNITS/3 ML VIAL SC PRN (17:46)
[2019-11-21] MEDS: Atorvastatin Calcium 40 MG TAB PO SCH (20:35)
[2019-11-22] MEDS: Neomycin-Polymyxin-Hc 7.5 ML BOT L EYE SCH ×5 (01:31→20:52)
--- NOTE | 2019-11-22 08:15 | PDOC.HOSPP ---
- Subjective Encounter Date: 11/22/19 Encounter Time: 14:00 Subjective: Patient back from Cuffed HD cath placement. He just spoke with Dr. Irwin and is refusing cardiac cath tomorrow. He wants to be discharged and f/u with a intern architect he knows in [place] for a second opinion. No other complaints right now. Lower extremity edema has resolved. - Objective Vital Signs & Weight: Vital Signs (12 hours) Temp Pulse Resp BP Pulse Ox 11/22/19 07:54 98.5 F 74 16 142/58 H 96 11/22/19 04:12 98.9 F 69 18 103/52 L 11/22/19 00:00 67 20 Weight Weight 143 lb 8.335 oz I&O: 11/21/19 11/22/19 11/23/19 06:59 06:59 06:59 Intake Total 960 980 Output Total 2800 Balance 960 -1820 Result Diagrams: 11/19/19 04:30 11/21/19 04:51 Additional Labs: Accuchecks 11/22/19 11/21/19 11/21/19 05:53 20:25 16:48 POC Glucose 131 H 248 H 186 H 11/21/19 10:35 POC Glucose 171 H Hospitalist ROS - Review of Systems Constitutional: denies: fever, chills Respiratory: denies: cough, shortness of breath Cardiovascular: denies: chest pain, palpitations, orthopnea Gastrointestinal: denies: nausea, vomiting, abdominal pain Neurological: denies: weakness - Medication Medications: Active Medications Generic Name Dose Route Start Last Admin Trade Name Freq PRN Reason Stop Dose Admin Acetaminophen 650 mg 11/16/19 17:44 11/17/19 13:01 Tylenol PO 650 mg Q4H PRN Administration Headache/Fever/Mild Pain (1-3) Aspirin 81 mg 11/17/19 09:00 11/21/19 11:54 Ecotrin PO 81 mg DAILY [facility] Administration Atorvastatin Calcium 80 mg 11/16/19 21:00 11/21/19 20:35 Lipitor PO 80 mg HS [facility] Administration Calcium/Vitamin D 1 tab 11/20/19 21:00 11/21/19 20:35 Caltrate 600 + Vit D PO 1 tab BID [facility] Administration Carvedilol 12.5 mg 11/20/19 17:00 11/21/19 17:46 Coreg PO 12.5 mg BID-WM [facility] Administration Epoetin Rusty-epbx 10,000 unit 11/16/19 15:00 11/16/19 18:41 Retacrit SC 10,000 unit Q7D [facility] Administration Heparin Sodium (Porcine) 5,000 units 11/17/19 21:00 11/21/19 20:35 Heparin SC 5,000 units BID [facility] Administration Insulin Human Lispro 0 units 11/16/19 10:19 11/21/19 17:46 Humalog SC 2 unit .MILD SLIDING SCALE PRN Administration Mild Correctional Scale Neomycin/Polymyxin/Hydrocortisone 1 drop 11/17/19 09:00 11/22/19 04:12 Cortisporin Opth L EYE Not Given Q4HR [facility] Paricalcitol 1 mcg 11/21/19 09:00 11/21/19 12:52 Zemplar IVP Not Given MoWeFr [facility] - Exam General Appearance: NAD, awake alert Eye: anicteric sclera ENT: moist mucosa Heart: RRR, no murmur, no gallops, no rubs Respiratory: CTAB, no wheezes, no rales, no ronchi Gastrointestinal: soft, non-tender, non-distended, normal bowel sounds Extremities - other findings: RLE with trace edema, LLE with none, right foot with surgically absent toes Psychiatric: normal affect, normal behavior, A&O x 3 Hosp A/P (1) Acute on chronic systolic (congestive) heart failure Code(s): I50.23 - ACUTE ON CHRONIC SYSTOLIC (CONGESTIVE) HEART FAILURE Status : Acute - Plan (1) CHF (congestive heart failure) Code(s): I50.9 - HEART FAILURE, UNSPECIFIED Status: Chronic Qualifiers: Heart failure type: systolic Heart failure chronicity: acute on chronic Qualified Code(s): I50.23 - Acute on chronic systolic (congestive) heart failure Assessment and Plan: ECHO earlier this month with EF of 25-30% Unknown etiology Improving fluid overload with dialysis and UF On life vest now. Continue coreg Eventual ACEI/ARB vs hydralazine+nitrite therapy. High risk due to need for emergent dialysis and risk of lethal arrhythmias; need for further cardiac work up to determine etiology of his CHF Stress test with evidence of left sided ischemia- plan for cardiac cath on 2019 (2) Elevated troponin Code(s): R79.89 - OTHER SPECIFIED ABNORMAL FINDINGS OF BLOOD CHEMISTRY Status : Acute Assessment and Plan: Case DW cardiology. Stress- possible left sided ischemia, cath on 11/23/2019 --> patient now refusing, Dr. Irwin has signed off Continue ASA, statin & BB therapy (3) DM type 2 (diabetes mellitus, type 2) Status: Chronic Qualifiers: Diabetes mellitus keno terminal operator insulin use: without residential use Diabetes mellitus complication status: with kidney complications Diabetes mellitus complication detail: with chronic kidney disease Chronic kidney disease stage : stage 5, not on chronic dialysis Qualified Code(s): E11.22 - Type 2 diabetes mellitus with diabetic chronic kidney disease; N18.5 - Chronic kidney disease, stage 5 Assessment and Plan: HA1C 5.7 about 2 weeks ago Diabetic, renal diet and SSI Complicated by CKD-5 now requiring dialysis (4) HTN (hypertension) Code(s): I10 - ESSENTIAL (PRIMARY) HYPERTENSION Status: Chronic Qualifiers: Hypertension type: essential hypertension Qualified Code(s): I10 - Essential (primary) hypertension Assessment and Plan: Continue dialysis with UF Continue coreg. Add Procardia XL due to persistent HTN Monitor BP and adjust meds accordingly (5) End Stage Renal Disease on Dialysis Patient getting dialysis Cuffed cath placement planned 11/22/2019 (6) Vitamin D insufficiency Code(s): E55.9 - VITAMIN D DEFICIENCY, UNSPECIFIED Status: Chronic On PO calcium+Vit D. per nephrology (7) Secondary hyperparathyroidism of renal origin Code(s): N25.81 - SECONDARY HYPERPARATHYROIDISM OF RENAL ORIGIN Status: Chronic On PO vitamin D and phoslo Patient s/p cuffed HD cath placement. D/C home when ok with surgery and nephrology and when O/P dialysis arranged. O/P dialysis awaiting insurance approval, uncertain how long that will take
[2019-11-22] MEDS ORDERED: Sodium Chloride 0.9% 40 ML ONE (08:58)
[2019-11-22] MEDS ORDERED: Lidocaine 1% w/Epinephrine 1:100K 20 ML VIAL ONE ×2 (08:58→11:37)
[2019-11-22] MEDS ORDERED: Bupivacaine PF 0.5% 30 ML VIAL ONE ×2 (08:58→11:37)
[2019-11-22] MEDS ORDERED: Heparin 10,000 UNITS/1 ML VIAL ONE (08:58)
[2019-11-22] MEDS ORDERED: PROPOFOL 200 MG/20 ML VIAL ONE (10:08)
[2019-11-22] MEDS ORDERED: Midazolam HCl 2 mg/2 ml Vial ONE (10:13)
[2019-11-22] MEDS ORDERED: traMADol HCl 50 MG TAB PO PRN (11:32)
[2019-11-22] MEDS ORDERED: Acetaminophen 500 MG TAB PO PRN (11:32)
[2019-11-22] MEDS ORDERED: Ondansetron HCl/PF 4 MG/2 ML Vial IVP PRN (11:35)
[2019-11-22] MEDS ORDERED: Iothalamate Meglumine 60% 50 ML VIAL FS ONE (11:37)
[2019-11-22] MEDS ORDERED: Bupivacaine 0.25% HCL 30 ML VIAL ONE (11:37)
--- NOTE | 2019-11-22 11:44 | RAD ---
Chest AP view INDICATION: Central line placement COMPARISON: November 16, 2019 FINDINGS: Lungs:Bibasilar opacities persist Cardiac silhouette:Siwn-yi-zelyypxa cardiomegaly is stable Pulmonary vasculature:Pulmonary vascular congestion persists Pleural spaces:Moderate right and small left pleural effusions are stable Upper abdomen:No abnormality seen. Osseous structures: No acute osseous abnormality. Additional findings:There is a new right IJ dialysis catheter and a new left IJ central venous cathet er. The dialysis catheter tip projects in the region of the caval atrial junction. The left IJ central venous catheter tip projects in the region of the right atrium. IMPRESSION: Stable volume overload or CHF. New central venous catheters as above. No pneumothorax.
[2019-11-22] MEDS ORDERED: CEFAZOLIN 2 GM in Premix Bag 1 BAG IVPB SCH (11:45)
[2019-11-22] MEDS: Aspirin 81 mg Enteric Coated Tablet PO SCH (12:35)
[2019-11-22] MEDS: Calcium Carbonate + Vit D 1 TAB PO SCH ×2 (12:35→20:52)
[2019-11-22] MEDS: Carvedilol 6.25 MG TAB PO SCH ×2 (12:36→16:55)
[2019-11-22] MEDS: Heparin 5,000 UNITS/ML VIAL SC SCH ×2 (12:36→20:52)
--- NOTE | 2019-11-22 13:37 | OP ---
DATE OF PROCEDURE: 11/22/2019 PREOPERATIVE DIAGNOSES: End-stage renal disease, in need of dialysis access, left arm fistula, but undergoing cardiac catheterization in the morning for an abnormal stress test. POSTOPERATIVE DIAGNOSES: End-stage renal disease, in need of dialysis access, left arm fistula, but undergoing cardiac catheterization in the morning for an abnormal stress test. PROCEDURES PERFORMED: 1. Right internal jugular cuffed tunneled hemodialysis catheter, AngioDynamics pre-curved. 2. Left internal jugular vein central line. 3. Ultrasound and fluoroscopy used. ANESTHESIA: IV sedation, local 0.5% Marcaine, 30 mL mixed with 1% Xylocaine with epinephrine 30 mL, 20 mL mixture used. DESCRIPTION OF PROCEDURE: The patient was taken to the operating room where under intravenous sedation, neck and chest prepared with ChloraPrep and draped in routine fashion. Local anesthetic was infiltrated in the skin and subcutaneous tissue about the operative site. Ultrasound guidance was used to cannulate both the right and left internal jugular veins. J-wire threaded, trocar catheter removed. Skin site was enlarged sharply bilaterally. Stab incision was made in the right chest. Seldinger technique was used to place a left internal jugular vein, triple-lumen catheter secured with 3-0 nylon suture, removed the J-wire. Sterile dressing applied. Each port aspirated, blood flushed with saline solution. The patient tolerated the procedure well. On the right side, the pre-curved AngioDynamics cuffed-tunneled hemodialysis catheter tunneled between 2 incisions. Catheter cuffed and placed beneath the skin. Catheter secured with 2 interrupted sutures of 3-0 nylon. Small and medium size dilators placed with J-wire in the internal jugular vein removed. Dilator and Peel-Away sheath placed with J-wire in superior vena cava. Dilator and J-wire were removed. Catheter placed with the Peel-Away sheath. Peel-Away sheath removed. Platysma was approximated with 4-0 Monocryl, skin with subdermal 4-0 Monocryl, and Rising Star glue and sterile dressings applied. Each port filled with blood flushed with saline solution and heparinized saline solution with 1000 units of heparin per mL indicating volume of the port. Job ID: [id number]
--- NOTE | 2019-11-22 15:32 | PRG ---
DATE OF SERVICE: 11/22/2019 SUBJECTIVE: Patient was seen and examined at bedside and overnight events noted. Patient denies any shortness of breath or chest pain or palpitation. No history of nausea or vomiting or diarrhea or fever or chills or cramps. OBJECTIVE: GENERAL: This is a well-built male, in no apparent distress. VITAL SIGNS: Temperature 97.8. Heart rate 72. Respiratory rate 16. Blood pressure 145/73. HEENT: Atraumatic, normocephalic. Oral mucosa is moist NECK: Supple. CARDIOVASCULAR: S1, S2 heard. Rate and rhythm regular. RESPIRATORY: Clear to auscultation. GASTROINTESTINAL: Abdomen is soft. MUSCULOSKELETAL: No tenderness. No edema. DERMATOLOGIC: No skin rash. NEUROLOGIC: Alert and awake and oriented X3. No focal neurologic deficits. Moving all the extremities. PSYCHIATRIC: Mood and affect normal. LABORATORY DATA: Not done today. ASSESSMENT: 1. End-stage renal disease. Continue on hemodialysis. 2. Hypocalcemia. 3. History of hypertension. 4. Anemia of chronic disease. PLAN: To continue on dialysis as tolerated. Job ID: [id number]
[2019-11-22] MEDS: HumaLOG 300 UNITS/3 ML VIAL SC PRN (17:01)
--- NOTE | 2019-11-22 17:08 | PRG ---
DATE OF SERVICE: 11/22/2019 Mr. Skaggs today had a hemodialysis catheter and a central line placed, so we could remove his temporary Trialysis catheter in his groin. The patient has a severe cardiomyopathy. Cardiac catheterization has been put off due to his chronic kidney disease, but now he has started dialysis. The stress test obtained reveals severe cardiomyopathy with reversible ischemia and hypokinesis. Dr. Irwin has talked to him about a cardiac catheterization, which was scheduled in the morning. Considering this planned cardiac catheterization, this morning we placed hemodialysis catheter and a central line and put off placing his left arm primary fistula pending cardiac evaluation. I talked to the patient 2 days prior regarding this and he was agreeable, but now has decided he does not want to do a cardiac catheterization. The patient's father had severe coronary artery disease, went through several pacemakers and coronary procedures and eventually . The patient based on his opinion on that. The patient also is frustrated and angry at caregivers for his right foot being partially amputated. I have explained to him that this is a result of his diabetic disease and not the fault of his caregivers. I have encouraged the patient to consider cardiac catheterization that although regional anesthesia for left arm fistula is reasonably safe with known coronary artery disease. His cardiac status should be addressed first. The patient is discussing matters with his family. He is tentatively scheduled at this time for left arm fistula on Tuesday. We will await his decision. I have also informed him that we cannot rely on dialysis catheter for ever, as it is risk for infection and venous damage and thrombosis. Job ID: [id number]
[2019-11-22] MEDS: Atorvastatin Calcium 40 MG TAB PO SCH (20:52)
[2019-11-23] MEDS: Neomycin-Polymyxin-Hc 7.5 ML BOT L EYE SCH ×5 (02:37→17:40)
[2019-11-23 08:05] LABS: #Basophils 0.1 thou/uL (0.0-0.2); #Eosinphils 0.2 thou/uL (0.0-0.7); #Lymphocytes 0.8 thou/uL (1.20-3.40); #Monocytes 0.5 thou/uL (0.11-0.59); #Neutrophils 3.8 thou/uL (1.40-6.50); %Basophils 1.3 % (0.0-1.0); %Eosinophils 3.1 % (0.0-10.0); %Lymphocytes 14.4 % (21.0-51.0); %Monocytes 10.1 % (0.0-10.0); %Neutrophils 71.2 % (42.0-75.0); Mean Corpuscular HGB CONC 34.7 g/dL (32.0-36.0); Mean Corpuscular Volume 89.3 fL (78.0-98.0); Mean Platelet Volume 7.8 fL (7.4-10.4); Platelet Count 157 thou/uL (130-400); RBC Distribution Width 13.6 % (11.5-14.5); Red Blood Cell (RBC) Count 2.88 mill/uL (4.70-6.10); White Blood Cell (WBC) Count 5.3 thou/uL (4.8-10.8)
--- NOTE | 2019-11-23 08:07 | PRG ---
DATE OF SERVICE: 11/23/2019 Mr. Skaggs is scheduled for left arm fistula next week, Tuesday. Orders were written, but if he declines cardiac evaluation, I will cancel this procedure. I discussed with him last night that he needs cardiac evaluation prior to any elective procedure, even though left arm fistula can be scheduled under regional anesthesia, there still presents some risks with known coronary artery disease. If the patient declines coronary evaluation, then from my standpoint, he is ready for discharge home and I can see him as an outpatient at a later time, but outpatient or inpatient dialysis access in his arm will not be scheduled until he undergoes further cardiac evaluation. Job ID: [id number]
[2019-11-23 08:16] LABS: Anion Gap 14 mmol/L (10-20); BUN (Urea Nitrogen) 60 mg/dL (8.4-25.7); Calc. Creatinine Clearance 13 mL/min (70-130); Calcium 7.3 mg/dL (7.8-10.44); Carbon Dioxide 25 mmol/L (22-29); Chloride 104 mmol/L (98-107); Estimated GFR-MDRD 10; Glucose 100 mg/dL (70-105); Potassium 4.4 mmol/L (3.5-5.1); Sodium 139 mmol/L (136-145)
[2019-11-23] MEDS: Aspirin 81 mg Enteric Coated Tablet PO SCH (08:55)
[2019-11-23] MEDS: Carvedilol 6.25 MG TAB PO SCH ×2 (08:55→17:40)
[2019-11-23] MEDS: Calcium Carbonate + Vit D 1 TAB PO SCH (08:55)
[2019-11-23] MEDS: Heparin 5,000 UNITS/ML VIAL SC SCH (08:56)
[2019-11-23] MEDS ORDERED: Heparin 10,000 UNITS/1 ML VIAL ONE (09:50)
[2019-11-23] MEDS: HumaLOG 300 UNITS/3 ML VIAL SC PRN (11:35)
[2019-11-23] MEDS: EPOETIN ALFA-EPBX (ESRD) 10,000 UNIT/ML VIAL SC SCH (13:06)
--- NOTE | 2019-11-23 15:15 | PRG ---
DATE OF SERVICE: 11/23/2019 Jeffery Skaggs still refuses cardiac catheterization. For this reason, I will not perform a left arm fistula until cardiac workup is complete. I have informed the patient of this. The patient states he will discuss this with his doctor in [place] and return to have his fistula later time. I left him a business card to call me as needed. I will see him as needed. Please call if necessary. The patient is stable for discharge to home. Job ID: [id number]
[2019-11-23 16:42] VITALS: BP 144/66; TEMP 97.7
--- NOTE | 2019-11-23 16:48 | PRG ---
DATE OF SERVICE: 11/23/2019 SUBJECTIVE: Patient was seen and examined at bedside and overnight events noted. Patient denies any shortness of breath or chest pain or palpitation. No history of nausea or vomiting or diarrhea or fever or chills or cramps. OBJECTIVE: GENERAL: This is a well-built male, in no apparent distress. VITAL SIGNS: Temperature 97.7. Heart rate 60. Respiratory rate 16. Blood pressure 133/56. HEENT: Atraumatic, normocephalic. Oral mucosa is moist NECK: Supple. CARDIOVASCULAR: S1, S2 heard. Rate and rhythm regular. RESPIRATORY: Clear to auscultation. GASTROINTESTINAL: Abdomen is soft. MUSCULOSKELETAL: No tenderness. No edema. DERMATOLOGIC: No skin rash. NEUROLOGIC: Alert and awake and oriented X3. No focal neurologic deficits. Moving all the extremities. PSYCHIATRIC: Mood and affect normal. LABORATORY DATA: Potassium 4.4, BUN is 60, and creatinine is 5.7. ASSESSMENT AND PLAN: 1. End-stage renal disease, continue dialysis as tolerated. 2. Edema. 3. Hypertension. 4. Anemia. 5. Hypocalcemia. Continue calcium supplement. Okay to discharge home. Follow up with Dialysis Clinic. Job ID: [id number]
--- NOTE | 2019-11-23 19:12 | DIS ---
DATE OF ADMISSION: 11/16/2019 DATE OF DISCHARGE: 11/23/2019 CONSULTANTS: 1. Dr. Rich of General Surgery. 2. Dr. Brantley of Nephrology. 3. Dr. Irwin of Cardiology. MEDICATIONS: Reconciled at discharge. Discontinued medications are; 1. Carvedilol 3.125 mg as the dose was increased. 2. Furosemide as the patient is now on hemodialysis. New medications; 1. Aspirin 81 mg daily. 2. Lipitor 80 mg at bedtime. 3. Calcium carbonate plus vitamin D 1500/400 one tablet twice daily. 4. Coreg 12.5 mg b.i.d. FINAL DIAGNOSES: 1. Acute on chronic systolic heart failure secondary to volume overload with an EF estimated at 25% to 30%. 2. End-stage renal disease, now on hemodialysis. 3. Abnormal stress test concerning for ischemia, the patient declined further evaluation here. 4. Elevated troponin. SECONDARY DIAGNOSES: 1. Anemia of chronic kidney disease. 2. Hypertension. 3. Vitamin D deficiency. 4. Secondary hyperparathyroidism. 5. Type 2 diabetes. HISTORY OF PRESENT ILLNESS: Mr. Skaggs is a 54-year-old male with the above medical problems, who presented to the emergency room with significant swelling in his legs and abdomen. He was found to need dialysis and admitted for this. HOSPITAL COURSE: The patient had placement of a hemodialysis catheter. He was evaluated by General Surgery with a plan for fistula placement. However, this has been deferred as the patient declined any cardiac workup and there were signs of lateral ischemia on his stress test. The patient has been given a card for Dr. Rich to follow up as an outpatient after his cardiac evaluation is complete. The patient has been monitored on telemetry and maintained a sinus rhythm. He was evaluated by Dr. Irwin of Cardiology, and underwent a stress test, which is abnormal. Catheterization was recommended. However, the patient decline two days in a row, and reports that he will follow up with his [place] monitoring manager. He is on a statin, low-dose aspirin, and beta yomi, and will be discharged with all three. History of diabetes, the patient's blood sugars here have ranged from 100 up to a high of 224 with most in the 100s. He is not currently on medications for this and will need followup with his primary care provider. The patient has tolerated dialysis here, and it has been arranged for him on Tuesday, Tuesday, and Tuesday at the [facility]. He will follow up there and continue following up with Dr. Brantley in the outpatient setting. The patient is overall feeling well, denies any pain or problems, and does meet criteria for discharge to home. PHYSICAL EXAMINATION: On day of discharge; VITAL SIGNS: Blood pressure 133/56, temperature 97.7, pulse 60, respirations 16 , saturations 98% on room air. GENERAL: Awake, alert, responsive, in no apparent distress. Able to speak in regular sentences. LUNGS: Clear to auscultation bilateral. No audible wheezing, rhonchi, or rales. HEART: Normal S1 and S2. Distant heart sounds. No significant murmur. ABDOMEN: Soft with present bowel sounds. EXTREMITIES: No pitting edema. JONES FINDINGS AND TEST RESULTS: CBC today; 5.3, 9.0, 25.8, 157. His INR is 1.2. Chemistry; 139, 4.4, 104, 25, 60, 5.76, 100. Urinalysis shows present protein, glucose, 7 to 10 white blood cells. Hepatitis B antigen/antibody, negative. Hepatitis B core antibody negative. Hepatitis C antibody negative. PROCEDURES PERFORMED: 1. Blood transfusion, 2 units of packed red blood cells. 2. Hemodialysis. 3. Nuclear stress test performed on 11/19, shows possible lateral ischemia, global hypokinesis, and poor ejection fraction. IMAGIN. Marking ultrasound on 11/19, shows vascular mapping for fistula placement. 2. Venogram on 11/17, no evidence of DVT of either lower extremity, significant portion of the right venous structure cannot be assessed. 3. Chest x-ray on 11/16, findings suggesting fluid overload. Bibasilar airspace opacities are similar. DIET: Renal prudent, and fluid restricted. ACTIVITY: As tolerated. FOLLOWUP: 1. With the [facility] in [place] on November 26 at 12:45 with instructions on what he needs to take with him. 2. Follow up with Dr. Rich in 2 to 3 weeks. 3. Follow up with dialysis and Dr. Patricia as directed. 4. Follow up with Dr. Irwin or his [place] monitoring manager as soon as possible for further cardiac evaluation. DISCHARGE DISPOSITION: Home CODE STATUS: Full Reviewed this hospitalization with the patient, the importance of followup, and seek care precautions. No further needs or questions at the end of evaluation. Total time coordinating discharge is 35 minutes. Job ID: [id number] MTDD
--- NOTE | 2019-11-26 03:05 | PQF ---
VINCE RIZZO DENA [id number] [id number] [id number] CLINICAL DOCUMENTATION CLARIFICATION FORM: POST DISCHARGE Addendum to original discharge summary date: 23 Nov 2019 Late entry note date: 26 Nov 2019 DATE: 11/26/19 ATTN: Estela Barnhart Please exercise your independent, professional judgment in responding to the clarification form. Clinical indicators are provided on the bottom of this form for your review Please check appropriate box(s) to clarify if the following diagnosis has been ruled in or ruled out: Type 2 OR [ ] Ruled in diagnosis [ ] Continue to treat [ ] Resolved [ ] Ruled out diagnosis [ XX ] Cannot rule out diagnosis [ ] Other diagnosis [ ] Unable to determine In addition, please specify: Present on Admission (POA): [ ] Yes [ ] No [ ] Unable to determine For continuity of documentation, please document condition throughout progress notes and discharge summary. Thank You. CLINICAL INDICATORS - SIGNS / SYMPTOMS / LABS Laboratory Chemistry 11/16 CK-MB: 11.8 Laboratory Chemistry 11/16 07:18 Troponin 0.119 Laboratory Chemistry 11/16 19:07 Troponin 0.141 Hospitalist H&P p1 11/16 Dr Calabrese Pt states that over the past 2 weeks, he has noticed significant swelling in his legs and abdominal swelling Hospitalist H&P p4 11/16 Dr Calabrese Elevated troponin could be related to fluid overload/ Type 2 OR RISK FACTORS Hospitalist H&P p4 11/16 - Acute on chronic systolic hear failure Hospitalist H&P p5 11/16 - Hypertension Hospitalist H&P p5 11/16 -Anemia TREATMENTS JAN 30 Aspirin JAN 30 Statin Hospitalist H&P p4 11/16 - Cycle enzymes Hospitalist H&P p4 11/16 - Continue BB therapy Cardio consult 11/17 Ariela Weiner (This form is maintained as a part of the permanent medical record) 2014 [employer] All Rights Reserved [email or web address] [not provided] MTDD
== END 2019-11-23 18:54 | disposition home or self-care (01) | DRG 280 ==
LOC: ERS 06:25 → ERHOLD 09:04 → 2NO 17:25
PROVIDERS: ADMIT Internal Medicine Sleep Medicine; ATTEND Internal Medicine Sleep Medicine
PROC: 5A1D70Z Performance of Urinary Filtration, Intermittent, Less than 6 Hours Per Day (ICD-10-PCS; 2019-11-16)
PROC: 0JH63XZ Insertion of Tunneled Vascular Access Device into Chest Subcutaneous Tissue and Fascia, Percutaneous Approach (ICD-10-PCS; 2019-11-16)
PROC: 02HV33Z Insertion of Infusion Device into Superior Vena Cava, Percutaneous Approach (ICD-10-PCS; 2019-11-16)
PROC: B518ZZA Fluoroscopy of Superior Vena Cava, Guidance (ICD-10-PCS; 2019-11-16)
PROC: B548ZZA Ultrasonography of Superior Vena Cava, Guidance (ICD-10-PCS; 2019-11-16)
PROC: 30233N1 Transfusion of Nonautologous Red Blood Cells into Peripheral Vein, Percutaneous Approach (ICD-10-PCS; principal; 2019-11-18)
DX: I13.2 Hypertensive heart and chronic kidney disease with heart failure and with stage 5 chronic kidney disease, or end stage renal disease (principal); I50.23 Acute on chronic systolic (congestive) heart failure; I21.A1 Myocardial infarction type 2; N18.6 End stage renal disease; N25.81 Secondary hyperparathyroidism of renal origin; E11.22 Type 2 diabetes mellitus with diabetic chronic kidney disease; D63.1 Anemia in chronic kidney disease; E55.9 Vitamin D deficiency, unspecified; E11.65 Type 2 diabetes mellitus with hyperglycemia; E88.09 Other disorders of plasma-protein metabolism, not elsewhere classified; I08.3 Combined rheumatic disorders of mitral, aortic and tricuspid valves; Z99.2 Dependence on renal dialysis; Z28.21 Immunization not carried out because of patient refusal; Z89.431 Acquired absence of right foot; Z79.899 Other long term (current) drug therapy; Z87.891 Personal history of nicotine dependence
CPT/HCPCS: 36415; 36416; 36430; 36556; 71045; 78452; 80048; 80053; 81003; 81015; 82306; 82550; 82553; 82728; 83540; 83550; 83690; 83735; 83880; 83970; 84100; 84484; 85025; 85610; 85730; 86580; 86704; 86706; 86803; 86850; 86900; 86901; 87340; 90935; 93005; 93017; 93970; 96374; A9500; C1752; C1769; G0257; G0365; J0690; J1610; J1644; J1940; J2250; J2501; J2704; J2785; P9016; Q5105; S0020